=== PATIENT | female | born 1975 | race Hispanic/Latino ===

== ENCOUNTER 2018-07-01 04:40 | Inpatient (IN) | payer SELFPAY ==
[2018-07-01] MEDS ORDERED: NA CHLORIDE 0.9% 1,000 ML ONE (05:38)
[2018-07-01] MEDS ORDERED: ONDANSETRON 4 MG/2 ML VIAL ONE ×2 (05:38→12:48)
[2018-07-01 05:43] LABS: Urine Blood 2+ (NEG); Urine Glucose NEGATIVE (NEG); Urine Protein 2+ (NEG); Urine Specific Gravity 1.025 (1.005-1.030)
[2018-07-01 05:45] LABS: Absolute Lymphocytes (CBC) 0.8 K/uL (0.7-4.9); Absolute Monocytes 0.3 K/uL (0.1-1.3); Absolute Neutrophil 4.6 K/uL (1.8-8.0); Basophils % 0.8 % (0-1.3); Eosinophils % 1.3 % (0-4.4); Lymphocytes % 13.2 % (15.3-44.8); Monocytes % 5.9 % (3.3-12.3); RBC Red Blood Cell Count 2.93 M/uL (3.86-4.86)
[2018-07-01 05:51] LABS: Hematocrit 19.9 % (36.0-45.0)
[2018-07-01 05:53] LABS: ALT/SGPT 46 U/L (12-78); AST/SGOT 62 U/L (15-37); Albumin 4.1 g/dL (3.4-5.0); Alkaline Phosphatase 85 U/L (45-117); BUN Blood Urea Nitrogen 6 mg/dL (7-18); Bicarbonate 29 mmol/L (21-32); Bilirubin Direct 0.4 mg/dL (0-0.2); Bilirubin Total 1.5 mg/dL (0.2-1.0); Glucose Level 128 mg/dL (74-106); Lipase 52 U/L (73-393); Potassium 3.6 mmol/L (3.5-5.1); Protein, Total 7.8 g/dL (6.4-8.2); Sodium Level 138 mmol/L (136-145)
[2018-07-01] MEDS ORDERED: FAMOTIDINE 20 MG/2 ML VIAL IV ONE (06:21)
[2018-07-01] MEDS ORDERED: CEFTRIAXONE/SWI 1gm 1 GM/10 ML SYR ONE (06:21)
[2018-07-01] MEDS ORDERED: FENTANYL CITR 100 MCG/2 ML ONE ×3 (06:21→12:47)
--- NOTE | 2018-07-01 07:12 | ER ---
Nurse's Notes [facility] Name: Minoo Sykes Age: 42 yrs Sex: Female : 1975 Arrival Date: 07/01/2018 Time: 04:53 Bed 20 Private MD: Diagnosis: Abdominal tenderness;Abnormal uterine and vaginal bleeding, unspecified;Anemia, unspecified;Leiomyoma of uterus, unspecified;Leiomyoma of uterus;Cholelithiasis;Vomiting;Cystitis;Acute maxillary sinusitis;Acute appendicitis-DISTAL TIP Presentation: 07/01 05:10 Presenting complaint: states: cough and vomiting x 2 days with epigastric pain. tl2 also states that pt had blood work done 1 month ago and was told to come in to get a blood transfusion but pt has not been seen by PCP. Transition of care: patient was not received from another setting of care. Onset of symptoms was June 28, 2018. Risk Assessment: Do you want to hurt yourself or someone else? Patient reports no desire to harm self or others. Initial Sepsis Screen: Does the patient meet any 2 criteria? No. Patient's initial sepsis screen is negative. Does the patient have a suspected source of infection? No. Patient's initial sepsis screen is negative. Care prior to arrival: None. 05:10 Method Of Arrival: Ambulatory tl2 05:10 Acuity: BERTA 3 tl2 Triage Assessment: 05:14 General: Appears in no apparent distress. uncomfortable, Behavior is calm, cooperative, tl2 appropriate for age. Pain: Complains of pain in epigastric area Pain currently is 8 out of 10 on a pain scale. Neuro: Level of Consciousness is awake, alert, obeys commands, Oriented to person, place, time, situation. Cardiovascular: Denies chest pain. Respiratory: Airway is patent Respiratory effort is even, unlabored, Respiratory pattern is regular, symmetrical. GI: Reports intolerance of food, nausea, vomiting. : No signs and/or symptoms were reported regarding the genitourinary system. Derm: Skin is pale. 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 - Social history:: Smoking status: Patient/guardian denies using tobacco. - Ebola Screening: : No symptoms or risks identified at this time. Screenin:17 Abuse screen: Denies threats or abuse. Nutritional screening: No deficits noted. tl2 Tuberculosis screening: No symptoms or risk factors identified. Fall Risk None identified. Assessment: 05:14 General: see triage assessment. tl2 06:45 Reassessment: Patient appears in no apparent distress at this time. Patient and/or tl2 family updated on plan of care and expected duration. Pain level reassessed. Patient is alert, oriented x 3, equal unlabored respirations, skin warm/dry/pink. pt out to CT, awaiting transfusion order sheets. 07:10 Reassessment: Patient appears in no apparent distress at this time. Patient and/or em family updated on plan of care and expected duration. Pain level reassessed. Patient states feeling better. General: Appears in no apparent distress. comfortable, Behavior is calm, cooperative. Pain: Complains of pain in abdomen. Neuro: Level of Consciousness is awake, alert, obeys commands, Oriented to person, place, time, situation, Denies dizziness. Cardiovascular: Denies chest pain. Respiratory: Airway is patent Respiratory effort is even, unlabored, Respiratory pattern is regular, symmetrical. GI: Abdomen is flat, Bowel sounds present X 4 quads. Abd is soft X 4 quads Abdomen is tender to palpation X 4 quads. Reports nausea, vomiting. Derm: Skin is intact, is healthy with good turgor, Skin is dry, Skin is pale. Musculoskeletal: Range of motion: intact in all extremities. 08:31 Reassessment: Patient appears in no apparent distress at this time. Patient and/or em family updated on plan of care and expected duration. Pain level reassessed. Patient is alert, oriented x 3, equal unlabored respirations, skin warm/dry/pink. rates pain 8/10, provider notified. 08:35 Reassessment: new mediation orders received. em 08:45 Reassessment: Patient appears in no apparent distress at this time. Patient and/or em family updated on plan of care and expected duration. Pain level reassessed. Dr. Fraga at bedside. 08:52 Reassessment: finished drinking PO contrast, tolerated well, CT notified. em 09:52 Reassessment: Patient appears in no apparent distress at this time. Patient and/or em family updated on plan of care and expected duration. Pain level reassessed. Patient is alert, oriented x 3, equal unlabored respirations, skin warm/dry/pink. 11:05 Reassessment: Patient appears in no apparent distress at this time. Patient and/or em family updated on plan of care and expected duration. Pain level reassessed. Patient is alert, oriented x 3, equal unlabored respirations, skin warm/dry/pink. reports pain 9/10, provider notified, new medication orders received. 12:14 Reassessment: Patient appears in no apparent distress at this time. Patient and/or em family updated on plan of care and expected duration. Pain level reassessed. Patient is alert, oriented x 3, equal unlabored respirations, skin warm/dry/pink. reports pain 9/10, provider notified, new medication orders received. Vital Signs: 05:14 BP 125 / 66; Pulse 93; Resp 18; Temp 98.8(O); Pulse Ox 99% on R/A; Weight 81.65 kg; tl2 Height 4 ft. 11 in. (149.86 cm); Pain 8/10; 05:43 BP 124 / 71; Pulse 65; Resp 17; Pulse Ox 97% on R/A; tl1 07:13 BP 118 / 66; Pulse 86; Resp 16; Pulse Ox 99% on R/A; Pain 2/10; em 08:30 BP 120 / 61; Pulse 83; Resp 16; Pulse Ox 99% on R/A; Pain 8/10; em 09:30 BP 120 / 55; Pulse 86; Resp 18; Pulse Ox 99% on R/A; em 10:35 BP 130 / 64; Pulse 91; Resp 18; Pulse Ox 99% on R/A; Pain 8/10; em 11:30 BP 129 / 63; Pulse 82; Resp 18; Pulse Ox 98% on R/A; Pain 9/10; em 05:14 Body Mass Index 36.36 (81.65 kg, 149.86 cm) tl2 ED Course: 04:53 Patient arrived in ED. es 04:58 Kd Galarza MD is Attending Physician. mimi 05:13 Triage completed. tl2 05:14 Arm band placed on right wrist. EKG completed in triage. Results shown to . tl2 05:17 Patient has correct armband on for positive identification. Placed in gown. Bed in low tl2 position. Call light in reach. Side rails up X 1. 05:49 Notified ED physician of a critical lab result(s). hemoglobin of 6.3, hct of 19.9. fc 06:02 CT Head Brain wo Cont In Process Unspecified. EDMS 06:03 CT completed. Patient tolerated procedure well. Patient moved to CT via stretcher. Patient moved back from CT. 06:[address] via stretcher. eh 06:43 CT Abd/Pelvis - W/Contrast In Process Unspecified. EDMS 07:00 Inserted saline lock: 20 gauge in right. em 07:07 Karen Gardiner MD is Hospitalizing Provider. [facility] 07:13 Mic Padilla LVN is Primary Nurse. em 07:13 Ultrasound completed. Patient tolerated well. Patient moved back from ultrasound. aa4 07:14 US Abdomen Limited In Process Unspecified. EDMS 07:14 US Transvaginal Study (Probe) In Process Unspecified. EDMS 08:30 Inserted saline lock: 20 gauge in left antecubital area, using aseptic technique. em 12:23 No provider procedures requiring assistance completed. Patient admitted, IV remains in em place. Administered Medications: 05:31 Drug: NS 0.9% 1000 ml Route: IV; Rate: 1 bolus; Site: right antecubital; tl1 07:18 Follow up: IV Status: Completed infusion; IV Intake: 1000ml em 05:32 Drug: Zofran 4 mg Route: IVP; Infused Over: 2 mins; Site: right antecubital; tl1 07:18 Follow up: Response: No adverse reaction; Nausea is decreased em 06:17 CANCELLED (Duplicate Order): NS 0.9% 1000 ml IV at 1 bolus Per protocol; 1000 mL bolus tl2 06:17 Drug: Pepcid 20 mg Route: IVP; Site: right antecubital; tl2 06:52 Follow up: Response: No adverse reaction; No change in condition tl1 06:18 Drug: fentaNYL (PF) 25 mcg Route: IVP; Site: right antecubital; tl2 06:52 Follow up: Response: No adverse reaction; Pain is decreased tl1 06:18 Drug: Rocephin - (cefTRIAXone) 1 grams Route: IVPB; Infused Over: 30 mins; Site: right tl2 antecubital; 06:52 Follow up: IV Status: Completed infusion tl1 08:20 Drug: Zosyn 3.375 grams Route: IVPB; Infused Over: 60 mins; Site: right antecubital; em 09:25 Follow up: Response: No adverse reaction; IV Status: Completed infusion; IV Intake: em 100ml 08:35 Drug: fentaNYL (PF) 25 mcg Route: IVP; Site: left antecubital; em 08:50 Follow up: Response: No adverse reaction; Pain is decreased em 11:10 Drug: fentaNYL (PF) 25 mcg Route: IVP; Site: right antecubital; em 12:10 Follow up: Response: No adverse reaction em 12:15 Drug: Dilaudid 0.5 mg Route: IVP; Site: right antecubital; la1 12:18 Follow up: Response: Medication administered at discharge. em Medication: 09:05 Blood products: PRBCs X 1 unit given. la1 12:22 Blood products: PRBCs X 1 unit given. la1 Intake: 07:18 IV: 1000ml; Total: 1000ml. em 09:25 IV: 100ml; Total: 1100ml. em Outcome: 07:11 Decision to Hospitalize by Provider. mimi 12:23 Admitted to OR accompanied by nurse, via wheelchair, with chart, Report called to em Hortencia Goyal RN 12:23 Condition: good 12:23 Instructed on the need for admit, Demonstrated understanding of instructions. 12:37 Patient left the ED. em Signatures: Dispatcher [employer] EDKd Waldron MD MD cha Salyer, Edna es Hagler, Ervin eh Chretien, Felicia RN Mic Freed, SPECTROGRAPHIC ANALYST SPECTROGRAPHIC ANALYST em Madalyn Russell aa4 Romeo Lewis RN RN la1 Elena Garcia RN RN tl1 Coty Oseguera RN RN tl2 Corrections: (The following items were deleted from the chart) 08:46 08:30 BP 120 / 61; Pulse 16bpm; Resp 99bpm; Pulse Ox 99% RA; Pain 8/10; em em 12:10 12:09 fentaNYL (PF) 25 mcg IVP in right antecubital em em 13:12 07:10 Pain: Complains of pain in abdomen em em 07/02 07:50 07/01 11:30 BP 129 / 63; Pulse 82bpm; Resp 18bpm; Pulse Ox 98% RA; Pain 04/06; em em 07/02 07:51 07/01 12:23 Admitted to OR accompanied by nurse, via wheelchair, on monitor, with em chart, Report called to Hortencia Goyal RN em
--- NOTE | 2018-07-01 07:12 | EDPHYS ---
Physician Documentation [facility] Name: Minoo Sykes Age: 42 yrs Sex: Female : 1975 Arrival Date: 07/01/2018 Time: 04:53 Bed 20 Private MD: ED Physician Kd Galarza HPI: 07/01 06:09 This 42 yrs old Female presents to ER via Ambulatory with complaints of mimi Vomiting, Abdominal Pain, Headache. 06:09 The patient presents to the emergency department with nausea, vomiting, abdominal pain, mimi of the right upper quadrant, left upper quadrant, right lower quadrant and left lower quadrant. Onset: The symptoms/episode began/occurred last night. Possible causes: unknown. The symptoms are aggravated by nothing. The symptoms are alleviated by nothing. Associated signs and symptoms: Pertinent positives: abdominal pain, nausea, vomiting. Severity of symptoms: At their worst the symptoms were moderate in the emergency department the symptoms are unchanged. The patient has not experienced similar symptoms in the past. 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 - Social history:: Smoking status: Patient/guardian denies using tobacco. - Ebola Screening: : No symptoms or risks identified at this time. ROS: 06:10 Constitutional: Negative for fever, chills, and weight loss, ENT: Negative for injury, mimi pain, and discharge, Neck: Negative for injury, pain, and swelling, Cardiovascular: Negative for chest pain, palpitations, and edema, Respiratory: Negative for shortness of breath, cough, wheezing, and pleuritic chest pain, Back: Negative for injury and pain, : Negative for injury, bleeding, discharge, and swelling, MS/Extremity: Negative for injury and deformity, Neuro: Negative for headache, weakness, numbness, tingling, and seizure, Psych: Negative for depression, anxiety, suicide ideation, homicidal ideation, and hallucinations, Allergy/Immunology: Negative for hives, rash, and allergies, Endocrine: Negative for neck swelling, polydipsia, polyuria, polyphagia, and marked weight changes, Hematologic/Lymphatic: Negative for swollen nodes, abnormal bleeding, and unusual bruising. 06:10 Abdomen/GI: Positive for abdominal pain, nausea and vomiting, abdominal cramps, of the right upper quadrant, left upper quadrant, right lower quadrant and left lower quadrant. 06:10 Skin: Positive for pallor. Exam: 06:10 Constitutional: This is a well developed, well nourished patient who is awake, alert, mimi and in no acute distress. Head/Face: Normocephalic, atraumatic. Eyes: Pupils equal round and reactive to light, extra-ocular motions intact. Lids and lashes normal. Conjunctiva and sclera are non-icteric and not injected. Cornea within normal limits. Periorbital areas with no swelling, redness, or edema. ENT: Nares patent. No nasal discharge, no septal abnormalities noted. Tympanic membranes are normal and external auditory canals are clear. Oropharynx with no redness, swelling, or masses, exudates, or evidence of obstruction, uvula midline. Mucous membranes moist. Neck: Trachea midline, no thyromegaly or masses palpated, and no cervical lymphadenopathy. Supple, full range of motion without nuchal rigidity, or vertebral point tenderness. No Meningismus. Chest/axilla: Normal chest wall appearance and motion. Nontender with no deformity. No lesions are appreciated. Cardiovascular: Regular rate and rhythm with a normal S1 and S2. No gallops, murmurs, or rubs. Normal PMI, no JVD. No pulse deficits. Respiratory: Lungs have equal breath sounds bilaterally, clear to auscultation and percussion. No rales, rhonchi or wheezes noted. No increased work of breathing, no retractions or nasal flaring. Back: No spinal tenderness. No costovertebral tenderness. Full range of motion. Skin: Warm, dry with normal turgor. Normal color with no rashes, no lesions, and no evidence of cellulitis. MS/ Extremity: Pulses equal, no cyanosis. Neurovascular intact. Full, normal range of motion. Neuro: Awake and alert, GCS 15, oriented to person, place, time, and situation. Cranial nerves II-XII grossly intact. Motor strength 5/5 in all extremities. Sensory grossly intact. Cerebellar exam normal. Normal gait. Psych: Awake, alert, with orientation to person, place and time. Behavior, mood, and affect are within normal limits. 06:10 Abdomen/GI: Inspection: distension, Bowel sounds: normal, Palpation: mild abdominal tenderness, in the right upper quadrant, left upper quadrant, right lower quadrant and left lower quadrant, Liver: no appreciated palpable abnormalities, Hernia: not appreciated. Vital Signs: 05:14 BP 125 / 66; Pulse 93; Resp 18; Temp 98.8(O); Pulse Ox 99% on R/A; Weight 81.65 kg; tl2 Height 4 ft. 11 in. (149.86 cm); Pain 8/10; 05:43 BP 124 / 71; Pulse 65; Resp 17; Pulse Ox 97% on R/A; tl1 07:13 BP 118 / 66; Pulse 86; Resp 16; Pulse Ox 99% on R/A; Pain 2/10; em 08:30 BP 120 / 61; Pulse 83; Resp 16; Pulse Ox 99% on R/A; Pain 8/10; em 09:30 BP 120 / 55; Pulse 86; Resp 18; Pulse Ox 99% on R/A; em 10:35 BP 130 / 64; Pulse 91; Resp 18; Pulse Ox 99% on R/A; Pain 8/10; em 11:30 BP 129 / 63; Pulse 82; Resp 18; Pulse Ox 98% on R/A; Pain 9/10; em 05:14 Body Mass Index 36.36 (81.65 kg, 149.86 cm) tl2 MDM: 04:59 Patient medically screened. [facility] 06:12 Data reviewed: vital signs, nurses notes, lab test result(s), radiologic studies, CT mimi scan, ultrasound. 07/01 05:00 Order name: Basic Metabolic Panel [facility] 07/01 05:00 Order name: CBC with Diff [facility] 07/01 05:00 Order name: Creatinine for Radiology [facility] 07/01 05:00 Order name: Hepatic Function [facility] 07/01 05:00 Order name: Lipase [facility] 07/01 05:00 Order name: Urine Culture [facility] 07/01 05:01 Order name: Basic Metabolic Panel; Complete Time: 06:08 [facility] 07/01 05:01 Order name: CBC with Automated Diff; Complete Time: 11:05 [facility] 07/01 05:01 Order name: Creatinine (Radiology Only); Complete Time: 06:08 [facility] 07/01 05:01 Order name: Liver (Hepatic) Function; Complete Time: 06:08 [facility] 07/01 05:01 Order name: Lipase; Complete Time: 06:08 [facility] 07/01 05:01 Order name: Urine Culture [facility] 07/01 05:13 Order name: Type And Screen tl2 07/01 05:36 Order name: Urine Dipstick--Ancillary (enter results) 07/01 05:00 Order name: CT Head Brain wo Cont; Complete Time: 09:08 [facility] 07/01 05:36 Order name: Urine --Ancillary (enter results) 07/01 05:55 Order name: CBC Smear Scan; Complete Time: 11:05 [facility] 07/01 06:07 Order name: US Abdomen Limited; Complete Time: 11:05 [facility] 07/01 06:07 Order name: US Transvaginal Study (Probe); Complete Time: 11:05 [facility] 07/01 06:07 Order name: CT Abd/Pelvis - W/Contrast; Complete Time: 11:05 [facility] 07/01 06:57 Order name: ABO/RH no charge; Complete Time: 06:59 [facility] 07/01 07:05 Order name: LAB Add On ag 07/01 07:41 Order name: ABO rpt [facility] 07/01 07:41 Order name: Packed RBCs (Additional Unit) [facility] 07/01 05:00 Order name: IV Saline Lock; Complete Time: 05:13 [facility] 07/01 05:00 Order name: Labs collected and sent; Complete Time: 05:13 [facility] 07/01 05:00 Order name: Urine Dipstick-Ancillary (obtain specimen); Complete Time: 05:32 [facility] 07/01 05:00 Order name: Urine Test (obtain specimen); Complete Time: 05:32 [facility] 07/01 06:07 Order name: Transfuse; Complete Time: 09:09 [facility] 07/01 11:32 Order name: CONS Physician Consult [facility] Administered Medications: 05:31 Drug: NS 0.9% 1000 ml Route: IV; Rate: 1 bolus; Site: right antecubital; tl1 07:18 Follow up: IV Status: Completed infusion; IV Intake: 1000ml em 05:32 Drug: Zofran 4 mg Route: IVP; Infused Over: 2 mins; Site: right antecubital; tl1 07:18 Follow up: Response: No adverse reaction; Nausea is decreased em 06:17 CANCELLED (Duplicate Order): NS 0.9% 1000 ml IV at 1 bolus Per protocol; 1000 mL bolus tl2 06:17 Drug: Pepcid 20 mg Route: IVP; Site: right antecubital; tl2 06:52 Follow up: Response: No adverse reaction; No change in condition tl1 06:18 Drug: fentaNYL (PF) 25 mcg Route: IVP; Site: right antecubital; tl2 06:52 Follow up: Response: No adverse reaction; Pain is decreased tl1 06:18 Drug: Rocephin - (cefTRIAXone) 1 grams Route: IVPB; Infused Over: 30 mins; Site: right tl2 antecubital; 06:52 Follow up: IV Status: Completed infusion tl1 08:20 Drug: Zosyn 3.375 grams Route: IVPB; Infused Over: 60 mins; Site: right antecubital; em 09:25 Follow up: Response: No adverse reaction; IV Status: Completed infusion; IV Intake: em 100ml 08:35 Drug: fentaNYL (PF) 25 mcg Route: IVP; Site: left antecubital; em 08:50 Follow up: Response: No adverse reaction; Pain is decreased em 11:10 Drug: fentaNYL (PF) 25 mcg Route: IVP; Site: right antecubital; em 12:10 Follow up: Response: No adverse reaction em 12:15 Drug: Dilaudid 0.5 mg Route: IVP; Site: right antecubital; la1 12:18 Follow up: Response: Medication administered at discharge. em Disposition: 07/01/18 07:11 Hospitalization ordered by Karen Gardiner for Inpatient Admission. Preliminary diagnosis are Abdominal tenderness, Abnormal uterine and vaginal bleeding, unspecified, Anemia, unspecified, Leiomyoma of uterus, unspecified, Leiomyoma of uterus, Cholelithiasis, Vomiting, Cystitis, Acute maxillary sinusitis, Acute appendicitis - DISTAL TIP. - Bed requested for Telemetry/MedSurg (Inpatient). - Status is Inpatient Admission. em - Condition is Fair. - Problem is new. - Symptoms have improved. UTI on Admission? Yes Signatures: Dispatcher [employer] EDKd Waldron MD MD cha Munoz, Edgar, INSTITUTION LIBRARIAN INSTITUTION LIBRARIAN em Haim Shelby PA PA [id number] Romeo Lewis RN RN la1 Elena Garcia RN RN tl1 Coty Oseguera RN RN tl2 Corrections: (The following items were deleted from the chart) 06:17 06:07 NS 0.9% 1000 ml IV at 1 bolus Per protocol; 1000 mL bolus ordered. mimi tl2 07:57 07:11 Hospitalization Ordered by Karen Gadriner MD for Observation. Preliminary diagnosis mimi is Abdominal tenderness; Abnormal uterine and vaginal bleeding, unspecified; Anemia, unspecified; Leiomyoma of uterus, unspecified; Leiomyoma of uterus; Cholelithiasis; Vomiting. Bed requested for Telemetry/MedSurg (observation). Status is Observation. Condition is Fair. Problem is new. Symptoms have improved. UTI on Admission? No. mimi 08:07 07:57 07/01/2018 07:11 Hospitalization Ordered by Karen Gardiner MD for Observation. [facility] Preliminary diagnosis is Abdominal tenderness; Abnormal uterine and vaginal bleeding, unspecified; Anemia, unspecified; Leiomyoma of uterus, unspecified; Leiomyoma of uterus; Cholelithiasis; Vomiting; Cystitis; Acute maxillary sinusitis. Bed requested for Telemetry/MedSurg (observation). Status is Observation. Condition is Fair. Problem is new. Symptoms have improved. UTI on Admission? Yes. [facility] 10:24 08:16 Pelvis W/Cont+CT.RAD.BRZ ordered. EDAZ EDMS 12:37 08:07 07/01/2018 07:11 Hospitalization Ordered by Karen Gardiner MD for Inpatient em Admission. Preliminary diagnosis is Abdominal tenderness; Abnormal uterine and vaginal bleeding, unspecified; Anemia, unspecified; Leiomyoma of uterus, unspecified; Leiomyoma of uterus; Cholelithiasis; Vomiting; Cystitis; Acute maxillary sinusitis; Acute appendicitis - DISTAL TIP. Bed requested for Telemetry/MedSurg (Inpatient). Status is Inpatient Admission. Condition is Fair. Problem is new. Symptoms have improved. UTI on Admission? Yes. mimi
[2018-07-01] MEDS ORDERED: NA CHLORIDE 0.9% 100 ML IV ONE ×2 (07:18→11:05)
[2018-07-01] MEDS ORDERED: PIPER/TAZO/NS 3.375gm 3.375 GM/100 ML BAG ONE (08:25)
--- NOTE | 2018-07-01 08:40 | RAD REPORT ---
EXAM DESCRIPTION: CT - Head Brain Wo Cont - 07/01/2018 6:02 am CLINICAL HISTORY: Headache COMPARISON: None. TECHNIQUE: Computed axial tomography of the head was obtained. IV contrast was not requested.Prelimi nary report generated by virtual radiologic and review prior to dictation All CT scans are performed using dose optimization technique as appropriate and may include automated exposure control or mA/KV adjustment according to patient size. FINDINGS: An intracranial bleed is not seen . The ventricles are normal in caliber. No extra-axial fluid collection is noted. Fluid within the sinuses/ mastoids is not seen. Mild to moderate mucoperiosteal thickening left maxil francesco sinus IMPRESSION: No acute intracranial abnormality is seen. If patient's symptoms persist MRI of the bra in would be recommended. Chronic left maxillary sinusitis
[2018-07-01 09:11] LABS: Blood Morphology Comment NOT SEEN (NOT SEEN); Platelet Estimate ADEQ; Urine White Blood Cell Casts OK
--- NOTE | 2018-07-01 09:40 | RAD REPORT ---
EXAM DESCRIPTION: US - Abdomen Exam Limited - 07/01/2018 7:14 am CLINICAL HISTORY: Abdominal pain. COMPARISON: None. FINDINGS: 3.1 centimeter gallstone. Gallbladder wall is not thickened. The biliary tree is normal caliber. IMPRESSION: Cholelithiasis without evidence of cholecystitis
--- NOTE | 2018-07-01 10:41 | RAD REPORT ---
EXAM DESCRIPTION: CT - Abdomen Pelvis W Contrast - 07/01/2018 10:25 am CLINICAL HISTORY: Abdominal pain nausea and vomiting COMPARISON: none. TECHNIQUE: Computed axial tomography of the abdomen pelvis was obtained. 100 cc Isovue-300 was admin istered intravenously. Oral contrast was given All CT scans are performed using dose optimization technique as appropriate and may include automated exposure control or mA/KV adjustment according to patient size. FINDINGS: A fatty liver Spleen, pancreas, adrenal and kidneys appear unremarkable. There is no evidence of diverticulitis. The distal appendix is thickened with stranding within the adjacent fat. The appendix extends mediall y and inferiorly to the cecum. A small appendicolith is seen. The distal appendix abuts the right ova ry 5 centimeter low-density present within the region of the endometrium IMPRESSION: Distal appendicitis. A 5 centimeter low-density area within the region the endometrium may represent blood, endometrial ma ss or submucosal fibroid
--- NOTE | 2018-07-01 10:45 | RAD REPORT ---
EXAM DESCRIPTION: US - Transvaginal Study Probe - 07/01/2018 7:14 am CLINICAL HISTORY: Abdominal pain FINDINGS: The uterus measures 7 x 3 x 3cm. A 5 centimeter echogenic structure is either present with in the endometrium or abuts it. The left ovary is normal in size and echotexture. Right ovary is not seen. . No significant free fluid is seen. IMPRESSION: 5 centimeter echogenic structure either lies within the endometrium or adjacent to it. I t may represent blood, an endometrial mass or submucosal fibroid
[2018-07-01] MEDS ORDERED: ONDANSETRON 4 MG/2 ML VIAL IV PRN (11:31)
[2018-07-01] MEDS ORDERED: MORPHINE 4 MG/ML SYR IV PRN (11:34)
[2018-07-01] MEDS ORDERED: HYDROMORPHONE HCL 0.5 MG/0.5 ML INJ ONE (12:23)
[2018-07-01] MEDS: BUPIVACA 0.25%/EPI 0.0005% MDV 50 ML VIAL ONE ×2 (12:45→13:13)
[2018-07-01] MEDS ORDERED: PROPOFOL 200 MG/20 ML VIAL IV ONE (12:46)
[2018-07-01] MEDS ORDERED: MIDAZOLAM HCL 2 MG/2 ML INJ ONE (12:48)
[2018-07-01] MEDS ORDERED: LIDOCAINE 2% MPF 5 ML VIAL ONE (12:48)
[2018-07-01] MEDS ORDERED: ROCURONIUM 50 MG/5 ML VIAL IV ONE (12:49)
[2018-07-01] MEDS ORDERED: Ringers Lactate 1,000 ML IV ONE ×2 (12:49→14:30)
[2018-07-01] MEDS: VANCOMYCIN 1.5 GM in NA CHLORIDE 0.9% 500 ML IVPB SCH (12:53)
--- NOTE | 2018-07-01 12:57 | CON ---
Date of Consultation: 07/01/2018 Brief History Of Present Illness: The patient is a 42-year-old female, who presents to the ER via Ambulatory with complaints of abdominal pain beginning in the lower abdomen in the periumbilic al region, but associated with headache as well. She has not had similar episodes before in the past . She has a history of menstrual complaints, having several menstrual periods per month with heavy b leeding. As she has no insurance, she has not been followed up with any physician, and has not had a ny workup of any kind regarding this. She stated that the pain felt much like menstrual pain, only m uch more severe in the lower abdomen, and as such, she came to the emergency room with the above-stat ed complaints. She was found to be profoundly anemic with a hemoglobin in the 6.9 range, and she had headaches as well. The pain was worse with pressure in her abdomen and palpation. Otherwise, she h ad no nausea, no vomiting. No change in bowel or bladder habits. No constipation, diarrhea. She daley s not had similar episodes before in the past regarding this specifically. Her last menstrual period was 06/13/2018. She feels that she is due for it in the next few days. Past Medical History: None. Past Surgical History: She has had 2 C-sections. Allergies: NO KNOWN DRUG ALLERGIES. Home Medications: None. Social History: She denies smoking, alcohol, or recreational drug use. Review of Systems: A 10-point review of systems other than HPI, denies. Physical Examination: Vital Signs: At the time of examination her blood pressure was 125/60, pulse 93, respiratory rate 18 , temperature 98.8. General: She is awake, alert, and oriented. Psychiatric: She is appropriate and conversive. HEENT: She is normocephalic. Sclerae anicteric. Mucous membranes are moist. Oropharynx clear. Neck: Supple. No JVD. Chest: Normal expansion and excursion. Cardiovascular: Regular rate and rhythm. Pulmonary: Clear to auscultation bilaterally. Abdomen: Soft with positive suprapubic and right lower quadrant abdominal pain. It has mild tendern ess to moderate to deep palpation. No rebound. No guarding. There was mild focal peritonitis in th e right lower quadrant. Extremities: No clubbing, cyanosis, or edema. Skin: Warm and dry. Laboratory Data: Reveals a white blood count of 5.8, hemoglobin 6.3, hematocrit of 19.9, platelet co unt is 173. Her neutrophils are 78.8%. Her sodium 138, potassium 3.6, chloride 101, carbon dioxide 29, BUN 6, creatinine 0.5, glucose is 128, total bilirubin 1.5, direct component 0.4, AST 62, ALT 46, alkaline phosphatase of 85, lipase was 52. UA was 1+ ketones, 2+ blood, positive nitrites, trace le ukocyte esterase, 2+ protein and negative test. She had imaging performed which included a head CT officially read as no acute intracranial abnormality seen. If the patient symptoms persist, MRI of the brain will be recommended. Chronic left maxillary sinusitis. She had a CT of the abdome n and pelvis as well, which was officially read as distal appendicitis 5 cm low-density area within t he region the endometrium, it may represent blood, endometrial mass, or submucosal fibroid. Distal a ppendix is thickened with stranding within the adjacent fat. The appendix extends medially and infer iorly to the cecum. A small appendicolith is seen. Distal appendix abuts the right ovary. She had an abdominal ultrasound, officially read as well, which showed cholelithiasis without cholecystitis, 3.1 cm gallstone evident. The gallbladder wall is not thickened. Transvaginal ultrasound was also p erformed, which confirmed a 5 cm echogenic structure, which lies within the endometrium or adjacent t o it. It may represent blood, endometrial mass or submucosal fibroid. Assessment And Plan: This is a 42-year-old female, who comes in with abdominal pain and an imaging c onfirming appendicitis. 1.IV fluid hydration. 2.Antibiotic coverage. 3.I have explained risks, benefits, and alternatives of laparoscopic, possible open appendectomy inc luding but not limited to bleeding, infection, damage to the surrounding tissue, need for further ope ration or procedures. The patient agreed to proceed as indicated. Thank you for this interesting consult. JULIANE/DORYS Voice ID: [id number] Report ID: [id number]
--- NOTE | 2018-07-01 14:00 | P.OP ---
Radio Station Manager: Liliam Villanueva Preoperative diagnosis: Acute Appendicitis Postoperative diagnosis: Acute Appendicitis Primary procedure: Laparoscopic Appendectomy Secondary procedure: Pelvic Washout Anesthesia: GETA + Local Estimated blood loss: <5cc Specimen: Vermiform Appendix Findings: Non-perforated Appendicitis Operative Technique: uterine mass consistent with fibroid Transferred to: ICU Condition: Fair
[2018-07-01] MEDS ORDERED: NEOSTIGMINE 1 MG/ML -5 ML SYRINGE ONE (14:04)
[2018-07-01] MEDS ORDERED: GLYCOPYRROLATE 0.2 MG/ML SYR ONE (14:04)
--- NOTE | 2018-07-01 15:27 | P.HP ---
Certification for Inpatient Patient admitted to: Inpatient With expected LOS: >2 Midnights Patient will require the following post-hospital care: None Practitioner: I am a practitioner with admitting privileges, knowledge of patient current condition, hospital course, and medical plan of care. Services: Services provided to patient in accordance with Admission requirements found in Title 42 Section 412.3 of the Code of Federal Regulations Patient History Date of Service: 07/01/18 Primary Care Provider: None Reason for admission: N/V and Dizziness History of Present Illness: A 42-year-old female, with medical history presented to the ED complaining of having some generalized abdominal pain. Patient also complained of nausea vomiting and coughing x2 days. Has been getting progressively worse and thus decided to come to the ER. Patient's at bedside states that patient was asked to go see a primary care doctor after having her blood work done a month ago and stated she needed blood transfusion at that time however was not able to get it done due to no insurance. Patient states that the abdominal pain began in the lower abdomen in the periumbilical region and was radiating to the right upper quadrant. Patient also had associated nausea vomiting and headache with it. She stated that the pain felt much like menstrual pain, only much more severe in the lower abdomen. She has not had similar episodes before in the past. She has a history of menstrual complaints , having several menstrual periods per month with heavy bleeding. As she has no insurance, she has not been followed up with any physician, and has not had any workup of any kind regarding this. In the ER patient was found to have a hemoglobin of [address] that was consistent with appendicitis this patient was admitted to the hospital for further treatment. Allergies No Known Allergies Allergy (Unverified 07/01/18 11:42) Home medications list reviewed: Yes - Past Medical/Surgical History Has patient received pneumonia vaccine in the past: No Diabetic: No Past Medical History: Patient denies medical history Past Surgical History: Reviewed- Non-Contributory - Family History Family History: Reviewed- Non-Contributory - Social History Smoking Status: Unknown if ever smoked Counseled patient to stop smoking for: less than 10 minutes Smoking therapy provided: Yes Patient receptive to therapy: Yes Alcohol use: No CD- Drugs: No Caffeine use: No Place of Residence: Home Review of Systems 10-point ROS is otherwise unremarkable Physical Examination - Vital Signs Temperature: 98.3 F Blood Pressure: 129/58 Pulse: 80 Respirations: 16 - Physical Exam General: Alert, Oriented x3, Mild distress HEENT: Atraumatic, PERRLA, Mucous membr. moist/pink, EOMI, Sclerae nonicteric Neck: Supple, 2+ carotid pulse no bruit, No LAD, Without JVD or thyroid abnormality Respiratory: Clear to auscultation bilaterally, Normal air movement Cardiovascular: Regular rate/rhythm, Normal S1 S2 Gastrointestinal: Normal bowel sounds, Tenderness (Generalized tenderness right lower and upper quadrant tenderness more than other places), Guarding Musculoskeletal: No tenderness Integumentary: No rashes Neurological: Normal speech, Normal tone Lymphatics: No axilla or inguinal lymphadenopathy - Studies Laboratory Data (last 24 hrs) 07/01/18 05:10: Creatinine 0.52 L 07/01/18 05:10: WBC 5.8, Hgb 6.3 L*, Hct 19.9 L*, Plt Count 173 07/01/18 05:10: Sodium 138, Potassium 3.6, BUN 6 L, Creatinine 0.54 L, Glucose 128 H, Total Bilirubin 1.5 H, AST 62 H, ALT 46, Alkaline Phosphatase 85, Lipase 52 L Assessment and Plan - Problems (Diagnosis) (1) Acute appendicitis Current Visit: Yes Status: Acute Plan: Acute appendicitis noted on the abdominal CT. -general surgery consulted. Recommendations appreciated at this time. -patient planned for surgery immediately will be transferred from the ER to the OR at this time -IV antibiotics at this time -IV fluids as well. Qualifiers: Acute appendicitis type: unspecified acute appendicitis type Qualified Code (s): K35.80 - Unspecified acute appendicitis (2) Symptomatic anemia Current Visit: Yes Status: Acute Plan: Symptomatic anemia most likely secondary to acute blood loss secondary to heavy menstruation and uterine fibroids. -will transfuse 2 units of red blood cells before surgery -monitor H&H closely -currently patient not having any vaginal bleed (3) UTI (urinary tract infection) Current Visit: Yes Status: Acute Plan: UA with UTI -urine culture is pending at this time -currently on IV antibiotics will go ahead and continue that here in the hospital as well. Qualifiers: Urinary tract infection type: acute cystitis Hematuria presence: without hematuria Qualified Code(s): N30.00 - Acute cystitis without hematuria (4) Abnormal ultrasound Current Visit: Yes Status: Acute Plan: Abnormal transvaginal ultrasound -patient with uterine fibroid versus endometrial mass -will consult OBGYN -will most likely need outpatient workup done. -will follow up with recommendations from OBGYN Discharge Plan: Home Plan to discharge in: 48 Hours - Advance Directives Does patient have a Living Will: No Does patient have a Durable POA for Healthcare: No - Code Status/Comfort Care Code Status Assessed: Yes Critical Care: No
[2018-07-01] MEDS ORDERED: PIPER/TAZO/NS 3.375gm 3.375 GM/100 ML BAG IVPB SCH (16:00)
[2018-07-01 16:35] LABS: BUN Blood Urea Nitrogen 4 mg/dL (7-18); Bicarbonate 29 mmol/L (21-32); Glucose Level 125 mg/dL (74-106); Phosphorus 1.6 mg/dL (2.5-4.9); Potassium 3.9 mmol/L (3.5-5.1); Sodium Level 140 mmol/L (136-145)
[2018-07-01] MEDS: NA CHLORIDE 0.9% 1,000 ML IV SCH ×2 (16:49→22:00)
[2018-07-01] MEDS: METRONIDAZOLE 500mg IVPB 500 MG/100 ML BAG IV SCH (16:49)
[2018-07-01] MEDS ORDERED: POTASSIUM 25 MEQ EFFERV TAB PO ONE (17:55)
[2018-07-01] MEDS ORDERED: INFLUENZA VACCINE (for 3y+) 0.5 ML DOSE IMVAC ONE (18:00)
[2018-07-01] MEDS: HYDROCODONE/APAP 5/325 MG TAB PO PRN ×2 (18:26→23:10)
[2018-07-01] MEDS: CIPROFLOXACIN 400mg IV 400 MG/200 ML BAG IV SCH (21:50)
--- NOTE | 2018-07-02 01:10 | OP ---
Date of Procedure: 07/01/2018 Surgeon: Kevin Fraga MD, Archery Instructor: Liliam Villanueva. Preoperative Diagnosis: Acute appendicitis. Postoperative Diagnosis: Acute appendicitis. Procedure: Laparoscopic appendectomy. Secondary Procedure: Pelvic washout. Anesthesia: General endotracheal plus local with 0.25% Marcaine. Estimated Blood Loss: Less than 5 cc. Specimen: Vermiform appendix. Findings: Nonperforated appendicitis and uterine mass consistent with fibroid. Disposition: Transferred to ICU in good condition. Procedure In Detail: After informed consent was obtained, the patient brought to the operating room, prepped and draped in the usual sterile fashion. After adequate anesthesia was achieved, an infraum bilical area was anesthetized with 0.25% Marcaine, sharply incised and a 5-mm trocar was introduced i nto the abdomen without evidence of complication. Insufflation was obtained to 15 mmHg at this time. The abdomen was inspected this time. There was no injury to vital structures. There was significa nt scarring to the anterior abdominal wall from the omentum in the area where she had previously had a . Initially, she had an infraumbilical small hernia, which had omental contents. This wa s easily reduced at the time using the LigaSure device. The attention was then turned to placing add itional trocar to left lower quadrant, similarly anesthetized, sharply incised. A 5-mm trocar was in troduced into the abdomen without any evidence of complication. The umbilical trocar was then up-siz ed to a 12-mm under direct visualization without evidence of any complication. The takedown of the u mbilical hernia and the omental attachments to the anterior abdominal wall as described previously we re performed at this time using the LigaSure device. An additional trocar was then placed in the rig ht lower quadrant at this time, similarly anesthetized, sharply incised. A 5-mm trocar was introduce d into the abdomen without any evidence of complication. The patient was then positioned head down, right side up position. Graspers were used to grasp the appendix which was found to be in a retrocec al position. It was grossly inflamed with some suppurative changes, but no obvious perforation. It was grasped, elevated and a mesoappendiceal window was created with the [place] tractor. Endo LAMBERTO 3 5 blue load was fired across the base of the appendix with good approximation of tissues. The LigaSu re device was then used to take the mesoappendix down without evidence of complication. The appendix was then removed. The umbilical trocar re-insufflation was obtained at this time and the area was i nspected with proper hemostasis, which was achieved at this time. [place] found to be in good anatom ic position without any leakage. The pelvis was then grossly washed out and had a murky reddish flui d, which was completely washed out. The patient was then positioned in multiple positions while wash ing the abdomen out in its entirety. Her fallopian tubes were found to be somewhat red, particularly on the right side. There were no other masses found at the adnexa. However, the uterus did have a small approximately 1 to 2 cm round ovoid mass consistent with fibroid on the dome of the uterus whic h was inspected at this time. The pelvis was completely washed out. The patient was positioned in n eutral position. All irrigants were then suctioned out completely and the umbilical trocar was remov ed. The umbilical trocar site was closed using a Anuj-Dandre suture passer with 0 Vicryl in inte rrupted fashion with good approximation of tissues. The abdomen was completely desufflated under dir ect visualization without evidence of complication. All trocars were then removed. All skin incisio ns were copiously irrigated and closed with a 4-0 Monocryl in a running fashion. Dermabond placed ov er the top. The patient tolerated the procedure well without evidence of complications, transferred to the PACU in good condition. All counts were c orrect at the end of the case. JULIANE/DORYS Voice ID: [id number] Report ID: [id number]
[2018-07-02] MEDS: METRONIDAZOLE 500mg IVPB 500 MG/100 ML BAG IV SCH ×3 (01:44→18:25)
[2018-07-02] MEDS: HYDROCODONE/APAP 5/325 MG TAB PO PRN ×4 (04:34→22:57)
[2018-07-02] MEDS: NA CHLORIDE 0.9% 1,000 ML IV SCH ×2 (04:35→18:00)
[2018-07-02 06:16] LABS: Absolute Lymphocytes (CBC) 0.8 K/uL (0.7-4.9); Absolute Monocytes 0.4 K/uL (0.1-1.3); Absolute Neutrophil 3.9 K/uL (1.8-8.0); Basophils % 0.7 % (0-1.3); Eosinophils % 1.4 % (0-4.4); Hematocrit 20.4 % (36.0-45.0); Lymphocytes % 15.9 % (15.3-44.8); MPV 9.1 fL (7.6-11.3); Monocytes % 7.9 % (3.3-12.3)
[2018-07-02 06:36] LABS: ALT/SGPT 30 U/L (12-78); AST/SGOT 26 U/L (15-37); Alkaline Phosphatase 61 U/L (45-117); BUN Blood Urea Nitrogen 5 mg/dL (7-18); Bicarbonate 28 mmol/L (21-32); Bilirubin Total 1.6 mg/dL (0.2-1.0); Glucose Level 102 mg/dL (74-106); Potassium 3.4 mmol/L (3.5-5.1); Protein, Total 6.1 g/dL (6.4-8.2); Sodium Level 141 mmol/L (136-145)
[2018-07-02] MEDS ORDERED: POTASSIUM 25 MEQ EFFERV TAB PO ONE ×2 (09:00→16:36)
--- NOTE | 2018-07-02 09:00 | P.CNS ---
Date of Consult: 07/02/18 Pt is a 42 year old female, who has a long history of abnormal , heavy menses, no with severe anemia. She has not seen a doctor in a number of years, and her last pap smear was likely with her youngest child, now aged 12. PMHx-Two pregnancies, second delivered by because of bleeding issues. She has no other surgery or hospitilizations previously. She is on an oral iron supplement by ROS-as stated. It is unclear what she may be using for contraception. Exam-Normal female external genetalia, speculum exam is poor because of narrowness of available speculum, but obvious lesion not seen. Cx difficult to visualize, but appears distorted. Bimanual exam reveals very hard cx that is suspicious for neoplasm because of rock hard nature. Uterus about 6 week size. Endometrial biopsy performed but speciman thought to likely represent mostly blood. Plan- Depo Provera to try and decrease bleeding, until further evaluation can be performed. Will wait on biopsy and likely will exam in my office with better equipment, and do a pap smear there. If neoplasia suspected, will refer to inspector final assembly conveyor line-onc for evaluation and treatment. IF all looks benign, will try and get into [facility] clinic for further management. I do not do abdominal hysterectomies any longer and she would not be a good candidate for a vaginal hysterectomy secondary to the prior and the uterine mass. If she is dismissed post depo provera and transfusion she should call my office Wednesday to set up an appointment for a pap smear.
[2018-07-02] MEDS: CIPROFLOXACIN 400mg IV 400 MG/200 ML BAG IV SCH ×2 (09:30→22:15)
[2018-07-02] MEDS ORDERED: NA CHLORIDE 0.9% 250 ML ONE (11:33)
--- NOTE | 2018-07-02 12:43 | P.PN ---
Subjective Date of Service: 07/02/18 Primary Care Provider: None Chief Complaint: N/V and Dizziness Subjective: Improving (Patient feels well, but continues to have vaginal bleeding) Physical Examination - Vital Signs Temperature: 98.2 F Blood Pressure: 95/54 Pulse: 80 Respirations: 18 Pulse Ox (%): 100 - Physical Exam General: Alert, In no apparent distress, Cooperative Gastrointestinal: Soft and benign, Non-distended, No ascites, No masses, No rebound, No guarding, Other (minimal appropriate TTP, incisions clean and dry) Assessment And Plan - Current Problems (Diagnosis) (1) Acute appendicitis Current Visit: Yes Status: Acute Plan: ok to DC from surgical standpoint, however patient requires continued treatment for acute blood loss anemia related to vaginal bleeding, refer to Dr. Ro and Dr. Beckham regarding these issues Qualifiers: Acute appendicitis type: unspecified acute appendicitis type Qualified Code (s): K35.80 - Unspecified acute appendicitis
[2018-07-02] MEDS ORDERED: NA CHLORIDE 0.9% 100 ML ONE (15:24)
[2018-07-02] MEDS: POTASS/SODIUM PHOSPHATE 1 PKT POWD.PACK PO SCH ×3 (16:53→18:59)
--- NOTE | 2018-07-02 18:20 | P.PN ---
Subjective Date of Service: 07/02/18 Primary Care Provider: None Chief Complaint: N/V and Dizziness Subjective: Tolerating diet, Ambulating, Improving, Working w/ PT, Doing well Review of Systems 10-point ROS is otherwise unremarkable Physical Examination - Vital Signs Temperature: 98.0 F Blood Pressure: 105/72 Pulse: 70 Respirations: 18 Pulse Ox (%): 97 - Physical Exam General: Alert, In no apparent distress HEENT: Atraumatic, PERRLA, EOMI Neck: Supple, JVD not distended Respiratory: Clear to auscultation bilaterally, Normal air movement Cardiovascular: Regular rate/rhythm, Normal S1 S2 Gastrointestinal: Normal bowel sounds, No tenderness Musculoskeletal: No tenderness Integumentary: No rashes Neurological: Normal speech, Normal tone, Normal affect Lymphatics: No axilla or inguinal lymphadenopathy - Studies Medications List Reviewed: Yes Assessment And Plan - Current Problems (Diagnosis) (1) Acute appendicitis Current Visit: Yes Status: Acute Plan: Acute appendicitis noted on the abdominal CT. -general surgery consulted. Recommendations appreciated at this time. -S/P Lap Appendectomy. Doing well overall. -Okay to DC per Gen Surgery Reccs Qualifiers: Acute appendicitis type: unspecified acute appendicitis type Qualified Code (s): K35.80 - Unspecified acute appendicitis (2) Symptomatic anemia Current Visit: Yes Status: Acute Plan: Symptomatic anemia most likely secondary to acute blood loss secondary to heavy menstruation and uterine fibroids. -H/H today is 6.8. will transfuse 2 units of red blood cells at this time -monitor H&H closely -Having Vaginal Bleeding now (3) UTI (urinary tract infection) Current Visit: Yes Status: Acute Plan: UA with UTI -urine culture negative -Stop Abx Qualifiers: Urinary tract infection type: acute cystitis Hematuria presence: without hematuria Qualified Code(s): N30.00 - Acute cystitis without hematuria (4) Abnormal ultrasound Current Visit: Yes Status: Acute Plan: Abnormal transvaginal ultrasound -OBGYN consulted. Reccs appreciated -Endometrial biospy -Depoprevera IM x 1 -F.U OP on wednesday for PAP smear -Concern for Possible cervical cancer Discharge Plan: Home Plan to discharge in: 48 Hours - Code Status/Comfort Care Code Status Assessed: Yes Critical Care: No
[2018-07-02 22:05] LABS: Hematocrit 27.6 % (36.0-45.0)
[2018-07-02] MEDS ORDERED: MEDROXYPROGEST ACET 150 MG/ML IM ONE (22:34)
[2018-07-02] MEDS: MEDROXYPROGEST ACET 150 MG/ML IM SCH (22:57)
[2018-07-03] MEDS: METRONIDAZOLE 500mg IVPB 500 MG/100 ML BAG IV SCH ×2 (02:48→09:29)
[2018-07-03] MEDS: HYDROCODONE/APAP 5/325 MG TAB PO PRN ×2 (04:47→09:33)
[2018-07-03 05:44] LABS: Absolute Monocytes 0.3 K/uL (0.1-1.3); Absolute Neutrophil 3.1 K/uL (1.8-8.0); Basophils % 0.8 % (0-1.3); Eosinophils % 2.8 % (0-4.4); Hematocrit 25.2 % (36.0-45.0); Lymphocytes % 21.4 % (15.3-44.8); MPV 9.4 fL (7.6-11.3); Monocytes % 7.5 % (3.3-12.3); RBC Red Blood Cell Count 3.35 M/uL (3.86-4.86)
[2018-07-03 07:51] LABS: ALT/SGPT 31 U/L (12-78); AST/SGOT 28 U/L (15-37); Alkaline Phosphatase 64 U/L (45-117); BUN Blood Urea Nitrogen 6 mg/dL (7-18); Bicarbonate 27 mmol/L (21-32); Bilirubin Total 1.6 mg/dL (0.2-1.0); Glucose Level 99 mg/dL (74-106); Phosphorus 2.1 mg/dL (2.5-4.9); Potassium 3.7 mmol/L (3.5-5.1); Protein, Total 6.3 g/dL (6.4-8.2); Sodium Level 143 mmol/L (136-145)
[2018-07-03] MEDS ORDERED: POTASSIUM PHOS IN 0.9 % NACL 15 MMOL/250 ML BAG IV ONE (09:00)
[2018-07-03] MEDS: CIPROFLOXACIN 400mg IV 400 MG/200 ML BAG IV SCH (09:29)
[2018-07-03] MEDS: NA CHLORIDE 0.9% 1,000 ML IV SCH (09:37)
[2018-07-03] MEDS: MEDROXYPROGEST ACET 150 MG/ML IM SCH (12:20)
--- NOTE | 2018-07-03 12:56 | P.DS ---
Admission Date: 07/01/18 Discharge Date: 07/03/18 Primary Care Provider: None Disposition: ROUTINE DISCHARGE Discharge Condition: GOOD Reason for Admission: N/V and Dizziness Consultations: General surgery OBGYN Procedures: Endometrial biopsy laparoscopic appendectomy - Problems (1) Acute appendicitis Current Visit: Yes Status: Acute Qualifiers: Acute appendicitis type: unspecified acute appendicitis type Qualified Code (s): K35.80 - Unspecified acute appendicitis (2) Symptomatic anemia Current Visit: Yes Status: Acute (3) UTI (urinary tract infection) Current Visit: Yes Status: Acute Qualifiers: Urinary tract infection type: acute cystitis Hematuria presence: without hematuria Qualified Code(s): N30.00 - Acute cystitis without hematuria (4) Abnormal ultrasound Current Visit: Yes Status: Acute Brief History of Present Illness: A 42-year-old female, with medical history presented to the ED complaining of having some generalized abdominal pain. Patient also complained of nausea vomiting and coughing x2 days. Has been getting progressively worse and thus decided to come to the ER. Patient's at bedside states that patient was asked to go see a primary care doctor after having her blood work done a month ago and stated she needed blood transfusion at that time however was not able to get it done due to no insurance. Patient states that the abdominal pain began in the lower abdomen in the periumbilical region and was radiating to the right upper quadrant. Patient also had associated nausea vomiting and headache with it. She stated that the pain felt much like menstrual pain, only much more severe in the lower abdomen. She has not had similar episodes before in the past. She has a history of menstrual complaints , having several menstrual periods per month with heavy bleeding. As she has no insurance, she has not been followed up with any physician, and has not had any workup of any kind regarding this. In the ER patient was found to have a hemoglobin of [address] that was consistent with appendicitis this patient was admitted to the hospital for further treatment. Hospital Course: Overall during the hospital stay patient main stable Patient was initially admitted to the hospital for acute appendicitis but was found on abdominal CT and symptomatic anemia. For patient's acute appendicitis general surgery was consulted who who did a laparoscopic appendectomy for the patient. Patient tolerated the procedure well and there were no complications further noted from the procedure itself. Patient was doing well passed gas and was ambulating and tolerating her diet well. For patient symptomatic anemia patient most likely had symptomatic anemia secondary to acute blood loss secondary to menorrhagia. OBGYN was consulted who recommended patient get an endometrial biopsy. Endometrial biopsy was done here in the hospital along with Depo-Provera shot. Patient had controlled vaginal bleeding after. Patient was transfused 4 units of packed RBC here. Did do well overall. And then was discharged home to follow up with OBGYN on Wednesday for a cervical biopsy given the high risk suspicion of cervical cancer on physical exam. Patient understand the plan and agree will pull to plan and thus was discharged home under stable condition Patient was found to have a UTI on the UA however urine culture were negative for any acute abnormality. Patient did not have any symptoms from the UTI and thus was not prescribed any antibiotics for it. Vital Signs/Physical Exam: Temp Pulse Resp BP Pulse Ox 97.2 F 75 18 125/66 98 07/03/18 08:00 07/03/18 08:00 07/03/18 08:00 07/03/18 08:00 07/03/18 08:00 General: Alert, In no apparent distress HEENT: Atraumatic, PERRLA, EOMI Neck: Supple, JVD not distended Respiratory: Clear to auscultation bilaterally, Normal air movement Cardiovascular: Regular rate/rhythm, Normal S1 S2 Gastrointestinal: Normal bowel sounds, No tenderness Musculoskeletal: No tenderness Integumentary: No rashes Neurological: Normal speech, Normal tone, Normal affect Lymphatics: No axilla or inguinal lymphadenopathy Laboratory Data at Discharge: WBC 4.7 K/uL (4.3-10.9) 07/03/18 05:10 Hgb 8.2 g/dL (12.0-15.0) L 07/03/18 05:10 Hct 25.2 % (36.0-45.0) L 07/03/18 05:10 Plt Count 157 K/uL (152-406) 07/03/18 05:10 Sodium 143 mmol/L (136-145) 07/03/18 05:10 Potassium 3.7 mmol/L (3.5-5.1) 07/03/18 05:10 BUN 6 mg/dL (7-18) L 07/03/18 05:10 Creatinine 0.43 mg/dL (0.55-1.3) L 07/03/18 05:10 Glucose 99 mg/dL (74-106) 07/03/18 05:10 Phosphorus 2.1 mg/dL (2.5-4.9) L 07/03/18 05:10 Magnesium 2.0 mg/dL (1.8-2.4) 07/01/18 16:10 Total Bilirubin 1.6 mg/dL (0.2-1.0) H 07/03/18 05:10 AST 28 U/L (15-37) 07/03/18 05:10 ALT 31 U/L (12-78) 07/03/18 05:10 Alkaline Phosphatase 64 U/L (45-117) 07/03/18 05:10 Lipase 52 U/L (73-393) L 07/01/18 05:10 Home Medications: NK [No Home Meds] 07/01/18 Patient Discharge Instructions: Please f.u with PCP, Surgery and OBGYN. New medication. Ferous Sulfate 325mg daily Diet: Regular Activity: No lifting more than 10 lbs Followup: Silvano Lou MD [ACTIVE - CAN ADMIT] - 07/04/18 (to see on 07/04/18 for cervical biopsy. ) Kevin Fraga MD [ACTIVE - CAN ADMIT] - 1 Week (call to schedule an appointment)
== END 2018-07-03 13:22 | disposition home or self-care (01) | DRG 342 ==
LOC: ER 04:40 → ERHOLD 11:30 → 3RD-ICU 13:52 → 4TH 14:35
PROVIDERS: ADMIT Family Medicine; ATTEND Family Medicine
PROC: 30233N1 Transfusion of Nonautologous Red Blood Cells into Peripheral Vein, Percutaneous Approach (ICD-10-PCS; 2018-07-01)
PROC: 0DTJ4ZZ Resection of Appendix, Percutaneous Endoscopic Approach (ICD-10-PCS; principal; 2018-07-01 11:30)
PROC: 0UDB7ZX Extraction of Endometrium, Via Natural or Artificial Opening, Diagnostic (ICD-10-PCS; 2018-07-02)
DX: K35.80 Unspecified acute appendicitis (principal); D62 Acute posthemorrhagic anemia; N30.00 Acute cystitis without hematuria; N92.0 Excessive and frequent menstruation with regular cycle; K35.890 Other acute appendicitis without perforation or gangrene; D25.9 Leiomyoma of uterus, unspecified
CPT/HCPCS: 36415; 36430; 70450; 74177; 76705; 76830; 80048; 80053; 80076; 80202; 81003; 81025; 83690; 83735; 84100; 84132; 85014; 85018; 85025; 86850; 86900; 86901; 87086; 87088; 88304; 88305; 99285; J0696; J0744; J1050; J1170; J2250; J2405; J2543; J2704; J2710; J3010; J7030; P9016; Q9967

== ENCOUNTER 2018-09-28 17:37 | Emergency (ER) | payer SELFPAY ==
[2018-09-28] MEDS ORDERED: NA CHLORIDE 0.9% 1,000 ML ONE (21:57)
[2018-09-28] MEDS ORDERED: ONDANSETRON 4 MG/2 ML VIAL ONE (21:57)
[2018-09-28 22:09] LABS: Absolute Lymphocytes (CBC) 1.7 K/uL (0.7-4.9); Absolute Monocytes 0.2 K/uL (0.1-1.3); Absolute Neutrophil 2.8 K/uL (1.8-8.0); Basophils % 1.2 % (0-1.3); Hematocrit 26.9 % (36.0-45.0); Lymphocytes % 35.1 % (15.3-44.8); MPV 8.1 fL (7.6-11.3); Monocytes % 4.7 % (3.3-12.3); RBC Red Blood Cell Count 3.46 M/uL (3.86-4.86)
[2018-09-28 22:27] LABS: BUN Blood Urea Nitrogen 5 mg/dL (7-18); Bicarbonate 21 mmol/L (21-32); Glucose Level 114 mg/dL (74-106); Potassium 3.1 mmol/L (3.5-5.1); Sodium Level 140 mmol/L (136-145)
[2018-09-28 22:30] LABS: Urine Appearance TURBID; Urine Blood 3+ (NEG); Urine Color RED; Urine Glucose NEGATIVE (NEG); Urine Protein 2+ (NEG); Urine Specific Gravity 1.025 (1.005-1.030)
[2018-09-28 22:38] LABS: Urine Bilirubin NEGATIVE (NEG); Urine Microscopic Reflex NO UMIC
[2018-09-28 23:06] LABS: Urine Bacteria >50 /HPF (<20); Urine Culture Reflex Order REFLEXED; Urine RBC TNTC /HPF (NONE SEEN)
[2018-09-29] MEDS ORDERED: CEFTRIAXONE 1000 MG/VIAL ONE ×2 (02:28)
[2018-09-29] MEDS ORDERED: POTASSIUM 25 MEQ EFFERV TAB ONE (02:28)
--- NOTE | 2018-09-29 02:53 | ER ---
Nurse's Notes [facility] Name: Minoo Sykes Age: 42 yrs Sex: Female : 1975 Arrival Date: 09/28/2018 Time: 17:37 Bed 24 Private MD: Diagnosis: Vaginal Bleeding;Anemia;Endometrial Mass Presentation: 09/28 18:14 Presenting complaint: Patient states: "I've been having my period for about 2 months aa5 ago and today it's been the worse and I am passing blood clots today". Pt's states "they took out her appendix about 2 months ago and they found fibroids but they haven't given us the results of the biopsy". Denies pain. Transition of care: patient was not received from another setting of care. Onset of symptoms was 2018. Risk Assessment: Do you want to hurt yourself or someone else? Patient reports no desire to harm self or others. Initial Sepsis Screen: Does the patient meet any 2 criteria? No. Patient's initial sepsis screen is negative. Does the patient have a suspected source of infection? No. Patient's initial sepsis screen is negative. Care prior to arrival: None. 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 - Social history:: Smoking status: Patient/guardian denies using tobacco. - Ebola Screening: : No symptoms or risks identified at this time. - Family history:: not pertinent. - Hospitalizations: : No recent hospitalization is reported. Screenin:40 Abuse screen: Denies threats or abuse. Denies injuries from another. Nutritional ca1 screening: No deficits noted. Tuberculosis screening: No symptoms or risk factors identified. Fall Risk None identified. Assessment: 20:40 General: Appears in no apparent distress. comfortable, Behavior is calm, cooperative, ca1 appropriate for age. Pain: Denies pain. Neuro: Level of Consciousness is awake, alert, obeys commands, Oriented to person, place, time, situation. Cardiovascular: Heart tones S1 S2 present Capillary refill < 3 seconds Patient's skin is warm and dry. Respiratory: Airway is patent Respiratory effort is even, unlabored, Respiratory pattern is regular, symmetrical. GI: Abdomen is round non-distended. : Urine is bloody Reports vaginal bleeding that is with clots, pt reports to have her monthly period since 8 days ago. Usually with a heavy flow, but today is heavier than usual with 8-9 pads change today and with passing of blood clots. EENT: No deficits noted. No signs and/or symptoms were reported regarding the EENT system. Derm: Skin is intact, is healthy with good turgor, Skin is pink, warm \\T\\ dry. Musculoskeletal: Circulation, motion, and sensation intact. Capillary refill < 3 seconds. 21:40 Reassessment: Patient appears in no apparent distress at this time. Patient and/or ca1 family updated on plan of care and expected duration. Pain level reassessed. Patient is alert, oriented x 3, equal unlabored respirations, skin warm/dry/pink. 21:40 Reassessment: Pt to US. ca1 22:31 Reassessment: Patient appears in no apparent distress at this time. Patient and/or ca1 family updated on plan of care and expected duration. Pain level reassessed. Patient is alert, oriented x 3, equal unlabored respirations, skin warm/dry/pink. Pt back from US. 23:40 Reassessment: Patient appears in no apparent distress at this time. Patient is alert, ca1 oriented x 3, equal unlabored respirations, skin warm/dry/pink. 09/29 00:49 Reassessment: Reassessment: Patient appears in no apparent distress at this time. ca1 Patient is alert, oriented x 3, equal unlabored respirations, skin warm/dry/pink. Vital Signs: 09/28 18:15 BP 145 / 78; Pulse 118; Resp 16 S; Temp 98.4(TE); Pulse Ox 98% on R/A; Height 4 ft. 11 aa5 in. (149.86 cm) (R); Pain 0/10; 20:40 BP 121 / 75; Pulse 114; Resp 19; Pulse Ox 99% on R/A; ca1 21:40 BP 118 / 74; Pulse 112; Resp 19; Pulse Ox 100% on R/A; ca1 22:31 BP 114 / 68; Pulse 110; Resp 19; Pulse Ox 100% on R/A; ca1 23:40 BP 116 / 62; Pulse 117; Resp 19; Pulse Ox 95% on R/A; ca1 04 00:49 BP 112 / 65; Pulse 107; Resp 18; Pulse Ox 100% on R/A; ca1 03:00 BP 123 / 70 RA; Pulse 96; Resp 16 S; Pulse Ox 100% on R/A; rv ED Course: 09/28 17:37 Patient arrived in ED. mr 18:12 Arm band placed on. aa5 18:15 Triage completed. aa5 20:40 Patient has correct armband on for positive identification. Placed in gown. Bed in low ca1 position. Call light in reach. Side rails up X 1. Pulse ox on. NIBP on. Warm blanket given. 20:47 Ayleen Jorge, RN is Primary Nurse. ca1 20:54 Ra Robison MD is Attending Physician. wa 21:45 Inserted saline lock: 20 gauge in right antecubital area, using aseptic technique. ca1 Blood collected. 22:19 Transvaginal Study Probe In Process Unspecified. EDMS 23:50 Assist provider with pelvic exam: Set up pelvic tray. Performed by Ayleen Jorge RN ca1 Patient tolerated well. 09/29 02:51 Gabrielle Alfonso MD is Referral Physician. wa 03:00 IV discontinued, bleeding controlled, No redness/swelling at site. Pressure dressing rv applied. Administered Medications: 09/28 21:52 Drug: NS 0.9% 1000 ml Route: IV; Rate: 1 bolus; Site: right antecubital; ca1 09/29 02:35 Follow up: IV Status: Completed infusion rv 09/28 21:55 Drug: Zofran 4 mg Route: IVP; Site: right antecubital; ca1 09/29 02:35 Follow up: Response: Nausea is decreased rv 02:30 Drug: Rocephin - (cefTRIAXone) 2 grams Route: IVPB; Infused Over: 30 mins; Site: right rv antecubital; 02:30 Drug: Potassium Effervescent Tablet 50 mEq Route: PO; rv Outcome: 02:53 Discharge ordered by . wa 03:00 Discharged to home ambulatory. rv 03:00 Condition: good 03:00 Discharge instructions given to patient, family, Instructed on discharge instructions, follow up and referral plans. medication usage, Demonstrated understanding of instructions, follow-up care, medications, Prescriptions given X 2. 03:01 Patient left the ED. rv Signatures: Dispatcher [employer] TITO Bev Gonzalez Ramsey, Emilia, RN RN aa5 Ra Robison MD MD wa Vicente, Ronaldo, RN RN rv Luisito, TR Abbasi RN ca1 Corrections: (The following items were deleted from the chart) 09/28 18:16 18:14 Acuity: BERTA 3 aa5 aa5
--- NOTE | 2018-09-29 02:53 | EDPHYS ---
Physician Documentation [facility] Name: Minoo Sykes Age: 42 yrs Sex: Female : 1975 Arrival Date: 09/28/2018 Time: 17:37 Bed 24 Private MD: ED Physician Ra Robison HPI: 09/29 09:05 This 42 yrs old Female presents to ER via Ambulatory with complaints of wa Vaginal Bleeding. 09:05 The patient presents with vaginal bleeding that is heavy. Onset: The symptoms/episode wa began/occurred 2 month(s) ago, today, passed a big clot. Modifying factors: The symptoms are alleviated by nothing, the symptoms are aggravated by nothing. Associated signs and symptoms: Pertinent positives: vaginal bleeding, Pertinent negatives: cramping, dysuria, fever, urinary frequency, vomiting. Severity of symptoms: At their worst the symptoms were moderate, in the emergency department the symptoms are actually worse, moderately. The patient has experienced similar episodes in the past, a few times. The patient has been recently seen by a physician: had biopsy but states did not get a call back. 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 - Social history:: Smoking status: Patient/guardian denies using tobacco. - Ebola Screening: : No symptoms or risks identified at this time. - Family history:: not pertinent. - Hospitalizations: : No recent hospitalization is reported. ROS: 09/29 09:07 Positive for vaginal bleeding. wa Constitutional: Negative for fever, chills, and weight loss, Eyes: Negative for injury, pain, redness, and discharge, ENT: Negative for injury, pain, and discharge, Neck: Negative for injury, pain, and swelling, Cardiovascular: Negative for chest pain, palpitations, and edema, Respiratory: Negative for shortness of breath, cough, wheezing, and pleuritic chest pain, Abdomen/GI: Negative for abdominal pain, nausea, vomiting, diarrhea, and constipation, Back: Negative for injury and pain, MS/Extremity: Negative for injury and deformity, Skin: Negative for injury, rash, and discoloration, Neuro: Negative for headache, weakness, numbness, tingling, and seizure, Psych: Negative for depression, anxiety, suicide ideation, homicidal ideation, and hallucinations. All other systems are negative. Exam: 09:08 Constitutional: This is a well developed, well nourished patient who is awake, alert, wa and in no acute distress. Head/Face: Normocephalic, atraumatic. Eyes: Pupils equal round and reactive to light, extra-ocular motions intact. Lids and lashes normal. Conjunctiva and sclera are non-icteric and not injected. Cornea within normal limits. Periorbital areas with no swelling, redness, or edema. ENT: Nares patent. No nasal discharge, no septal abnormalities noted. Tympanic membranes are normal and external auditory canals are clear. Oropharynx with no redness, swelling, or masses, exudates, or evidence of obstruction, uvula midline. Mucous membranes moist. Neck: Trachea midline, no thyromegaly or masses palpated, and no cervical lymphadenopathy. Supple, full range of motion without nuchal rigidity, or vertebral point tenderness. No Meningismus. Chest/axilla: Normal chest wall appearance and motion. Nontender with no deformity. No lesions are appreciated. Cardiovascular: Regular rate and rhythm with a normal S1 and S2. No gallops, murmurs, or rubs. Normal PMI, no JVD. No pulse deficits. Respiratory: Lungs have equal breath sounds bilaterally, clear to auscultation and percussion. No rales, rhonchi or wheezes noted. No increased work of breathing, no retractions or nasal flaring. Abdomen/GI: Soft, non-tender, with normal bowel sounds. No distension or tympany. No guarding or rebound. No evidence of tenderness throughout. Back: No spinal tenderness. No costovertebral tenderness. Full range of motion. Skin: Warm, dry with normal turgor. Normal color with no rashes, no lesions, and no evidence of cellulitis. MS/ Extremity: Pulses equal, no cyanosis. Neurovascular intact. Full, normal range of motion. Neuro: Awake and alert, GCS 15, oriented to person, place, time, and situation. Cranial nerves II-XII grossly intact. Motor strength 5/5 in all extremities. Sensory grossly intact. Cerebellar exam normal. Normal gait. Psych: Awake, alert, with orientation to person, place and time. Behavior, mood, and affect are within normal limits. 09:08 : CVA tenderness, is absent, Pelvic Exam: External exam: is normal, Speculum exam: scant bleeding, no cervicitis, os that is closed, blood noted in vault, mild. Vital Signs: 09/28 18:15 BP 145 / 78; Pulse 118; Resp 16 S; Temp 98.4(TE); Pulse Ox 98% on R/A; Height 4 ft. 11 aa5 in. (149.86 cm) (R); Pain 0/10; 20:40 BP 121 / 75; Pulse 114; Resp 19; Pulse Ox 99% on R/A; ca1 21:40 BP 118 / 74; Pulse 112; Resp 19; Pulse Ox 100% on R/A; ca1 22:31 BP 114 / 68; Pulse 110; Resp 19; Pulse Ox 100% on R/A; ca1 23:40 BP 116 / 62; Pulse 117; Resp 19; Pulse Ox 95% on R/A; ca1 09/29 00:49 BP 112 / 65; Pulse 107; Resp 18; Pulse Ox 100% on R/A; ca1 03:00 BP 123 / 70 RA; Pulse 96; Resp 16 S; Pulse Ox 100% on R/A; rv MDM: 09/28 20:54 Patient medically screened. la 09/29 09:09 Differential diagnosis: menometrorrhagia, menorrhea, uterine fibroids. la 09:09 Data reviewed: vital signs, nurses notes, lab test result(s), radiologic studies. Test la interpretation: by ED physician or midlevel provider: labs noted with mild anemia and UTI. US noted for mass in the endometrium. fibroid vs mass. Response to treatment: the patient's symptoms have markedly improved after treatment. 09:10 ED course: d/c'd with seaming inspector f/u. FeSO4 and abx scripted for. advised to f/u with the la biopsy results. 09/28 21:40 Order name: Abo/rh Typing; Complete Time: 02:49 la 09/28 21:40 Order name: Basic Metabolic Panel; Complete Time: 02:10 la 09/28 21:40 Order name: CBC with Diff; Complete Time: 02:49 la 09/28 21:40 Order name: Urine Microscopic Only; Complete Time: 02:49 la 09/28 22:16 Order name: Urinalysis; Complete Time: 02:10 [facility] 09/28 21:40 Order name: Urine Test (obtain specimen); Complete Time: 22:02 la 09/28 21:53 Order name: Transvaginal Study Probe [facility] 09/28 23:07 Order name: Urine Culture [facility] 09/28 21:40 Order name: IV Saline Lock; Complete Time: 22: la 09/28 21:40 Order name: Labs collected and sent; Complete Time: 22: la 09/28 21:40 Order name: NPO; Complete Time: 22: la 09/28 21:40 Order name: Urine Dipstick-Ancillary (obtain specimen); Complete Time: 22: la 09/28 21:41 Order name: Pelvic Exam Setup; Complete Time: 22:19 la Administered Medications: 09/28 21:52 Drug: NS 0.9% 1000 ml Route: IV; Rate: 1 bolus; Site: right antecubital; ca1 09/29 02:35 Follow up: IV Status: Completed infusion rv 09/28 21:55 Drug: Zofran 4 mg Route: IVP; Site: right antecubital; ca1 09/29 02:35 Follow up: Response: Nausea is decreased rv 02:30 Drug: Rocephin - (cefTRIAXone) 2 grams Route: IVPB; Infused Over: 30 mins; Site: right rv antecubital; 02:30 Drug: Potassium Effervescent Tablet 50 mEq Route: PO; rv Disposition: 09/29/18 02:53 Discharged to Home. Impression: Vaginal Bleeding, Anemia, Endometrial Mass. - Condition is Stable. - Discharge Instructions: Urinary Tract Infection, Adult, [id number], Abnormal Uterine Bleeding, [id number]. - Prescriptions for Ferrous Sulfate 325 mg (65 mg Iron) Oral Tablet - take 1 tablet by ORAL route every 8 hours; 90 tablet. Keflex 500 mg Oral Capsule - take 1 capsule by ORAL route every 8 hours for 5 days; 15 capsule. - Medication Reconciliation Form, Thank You Letter, Antibiotic Education, Prescription Opioid Use form. - Follow up: Gabrielle Alfonso MD; When: 1 - 2 days; Reason: Recheck today's complaints. - Notes: follow up with the ROUTING CLERK doctor for further evaluation of the mass in your uterus. take medication as prescribed Signatures: Dispatcher [employer] EDSD Emilia Mustafa, RN RN aa5 Ra Robison MD MD wa Vicente, Ronaldo, RN RN rv Luisito, Ayleen RN RN ca1 Corrections: (The following items were deleted from the chart) 09/28 21:53 21:49 Pelvis Complete+US.RAD.BRZ ordered. EDMS EDMS 22:42 22:16 URINALYSIS+U.LAB.BRZ ordered. EDSD EDSD 09/29 03:01 02:53 09/29/2018 02:53 Discharged to Home. Impression: Vaginal Bleeding; Anemia; rv Endometrial Mass. Condition is Stable. Forms are Medication Reconciliation Form, Thank You Letter, Antibiotic Education, Prescription Opioid Use. Follow up: Gabrielle Alfonso; When: 1 - 2 days; Reason: Recheck today's complaints. anmol
--- NOTE | 2018-09-29 08:24 | RAD REPORT ---
EXAM DESCRIPTION: US - Transvaginal Study Probe - 09/28/2018 10:18 pm CLINICAL HISTORY: Severe vaginal bleeding, pelvic pain COMPARISON: Ultrasound July 01, 2018, CT study July 01, 2018 TECHNIQUE: Endovaginal sonography was performed. FINDINGS: Uterus is approximately 9.6 x 7.2 x 8.7 cm. There is a central 5.4 centimeter solid mass i dentified. The mass matches prior imaging studies. This is most likely an intramural and submucosal f ibroid rather than a primary endometrial mass. Primary endometrial mass cannot be excluded. Central m ass mostly distorts or obscures the endometrium. A short segment of echogenic tissue 5 mm in thicknes s is seen believed to be displaced endometrium. Right ovary contains a small 15 millimeter cyst. No suspicious ovarian or adnexal finding. No free fl uid or blood in the cul-de-sac. IMPRESSION: Approximately 5.4 centimeter solid mass central uterus. This is most likely a large intr amural and submucosal fibroid. Endometrial origin mass is not excluded but felt to be lesser in likelihood. No suspicious ovarian or adnexal finding.
== END 2018-09-29 03:01 | disposition home or self-care (01) ==
LOC: ER 17:37
DX: D64.9 Anemia, unspecified (principal); N85.8 Other specified noninflammatory disorders of uterus
CPT/HCPCS: 36415; 76830; 80048; 81003; 81015; 85025; 86900; 86901; 87086; 87088; 96361; 96374; 96375; 99284; J2405; J7030

== ENCOUNTER 2022-11-13 14:24 | Emergency (ER) | payer BC ==
[2022-11-13 15:55] LABS: Specific Gravity 1.023 (1.005-1.030)
[2022-11-13 16:09] LABS: Specific Gravity 1.023 (1.005-1.030); Urine Bacteria None Seen /HPF (<20); Urine Bilirubin NEGATIVE (Negative); Urine Blood 2+ (Negative); Urine Clarity Clear (Clear); Urine Color Yellow (Yellow); Urine Glucose NEGATIVE (Negative); Urine Mucus Slight /HPF (None Seen); Urine Protein 1+ (Negative); Urine RBC 21-50 /HPF (None Seen); Urine Urobilinogen Normal (Normal); Urine pH 5.5 (5.0-7.0)
[2022-11-13] MEDS ORDERED: KETOROLAC 30 MG/ML INJ ONE (16:16)
[2022-11-13] MEDS ORDERED: ONDANSETRON 4 MG/2 ML VIAL ONE (16:16)
[2022-11-13] MEDS ORDERED: NA CHLORIDE 0.9% 1,000 ML ONE (16:16)
[2022-11-13 16:22] LABS: Absolute Lymphocytes (CBC) 0.7 K/uL (0.7-4.9); Hematocrit 29.7 % (36.0-45.0); Lymphocytes % 12.8 % (15.3-44.8); MCV 69.4 fL (80-100); MPV 8.1 fL (7.6-11.3); RBC Red Blood Cell Count 4.28 M/uL (3.86-4.86)
[2022-11-13 16:42] LABS: Bilirubin Total 1.3 mg/dL (0.2-1.0); Potassium 3.6 mEq/L (3.5-5.1); Protein, Total 7.9 g/dL (6.4-8.2)
--- NOTE | 2022-11-13 17:00 | RAD REPORT ---
EXAM DESCRIPTION: CTAbdomen Pelvis W Contrast - 11/13/2022 4:50 pm CLINICAL HISTORY: Abdominal pain. ABD PAIN COMPARISON: Abdomen Pelvis W Contrast dated 07/01/2018; Transvaginal Study Probe dated 07/01/2018; Tra nsvaginal Study Probe dated 09/28/2018 TECHNIQUE: Biphasic CT imaging of the abdomen and pelvis was performed with 100 ml non-ionic IV cont rast. All CT scans are performed using dose optimization technique as appropriate and may include automated exposure control or mA/KV adjustment according to patient size. FINDINGS: The lung bases are clear. The liver demonstrates diffuse fatty infiltration. Cholecystectomy. Spleen, pancreas, adrenal glands and kidneys are within normal limits. No bowel obstruction, free air, free fluid or abscess. The appendix is normal. No evidence of signi ficant lymphadenopathy. Rounded 5 cm mass within the fundal atrium. No suspicious bony findings. IMPRESSION: No acute intra-abdominal or pelvic finding. 5 cm mass in the fundal endometrium probably represents a submucosal fibroid. Follow-up nonemergent p elvic ultrasound would be advised.
--- NOTE | 2022-11-13 17:10 | EDPHYS ---
Physician Documentation [facility] Name: Minoo Sykes Age: 46 yrs Sex: Female : 1975 Arrival Date: 11/13/2022 Time: 14:24 Bed 17 Private MD: ED Physician Alex Nixon HPI: 11/13 17:08 This 46 yrs old Female presents to ER via Wheelchair with complaints of kb Abdominal Pain. 17:08 The patient presents with abdominal pain. Onset: The symptoms/episode began/occurred kb this morning. The symptoms do not radiate. Associated signs and symptoms: Pertinent positives: nausea, Pertinent negatives: fever, vomiting. The symptoms are described as constant. Modifying factors: The symptoms are alleviated by nothing, the symptoms are aggravated by nothing. Severity of pain: At its worst the pain was moderate in the emergency department the pain is unchanged. The patient has not experienced similar symptoms in the past. The patient has not recently seen a physician. Historical: - Allergies: 14:47 No Known Allergies; hb - Home Meds: 14:47 None [Active]; hb - PMHx: 14:47 Anemia; hb - PSHx: 14:47 Appendectomy; section; Cholecystectomy; hb - Immunization history:: Adult Immunizations up to date. - Social history:: Smoking status: Patient denies any tobacco usage or history of. ROS: 17:07 Constitutional: Negative for fever, chills, and weight loss. kb 17:07 Abdomen/GI: Positive for abdominal pain, nausea. 17:07 All other systems are negative. Exam: 17:07 Constitutional: This is a well developed, well nourished patient who is awake, alert, kb and in no acute distress. Head/Face: Normocephalic, atraumatic. ENT: Moist Mucous membranes Cardiovascular: Regular rate and rhythm with a normal S1 and S2. No gallops, murmurs, or rubs. No pulse deficits. Respiratory: Respirations even and unlabored. No increased work of breathing. Talking in full sentences Skin: Warm, dry with normal turgor. Normal color. MS/ Extremity: Pulses equal, no cyanosis. Neurovascular intact. Full, normal range of motion. Neuro: Awake and alert, GCS 15, oriented to person, place, time, and situation. Moves all extremities. Normal gait. 17:07 Abdomen/GI: Inspection: abdomen appears normal, healed surgical sites without redness, swelling or warmth, Bowel sounds: normal, Palpation: soft, in all quadrants, mild abdominal tenderness, in the right upper quadrant. Vital Signs: 14:32 BP 157 / 87; Pulse 95; Resp 16; Temp 98.3; Pulse Ox 100% on R/A; Weight 74.84 kg; hb Height 4 ft. 9 in. ; Pain 8/10; 16:14 BP 155 / 82; Pulse 84; Resp 18; Pulse Ox 97% on R/A; Pain 8/10; ld1 14:32 Body Mass Index 35.71 (74.84 kg, 144.78 cm) hb 14:32 Pain Scale: Adult hb 16:14 Pain Scale: Adult ld1 MDM: 14:33 Patient medically screened. rn 17:08 Differential diagnosis: gastroesophageal reflux disease, non-specific abd pain, kb pancreatitis, abscess. Data reviewed: vital signs, nurses notes. Historians other than the Patient: Family Member: sister. Counseling: I had a detailed discussion with the patient and/or guardian regarding: the historical points, exam findings, and any diagnostic results supporting the discharge/admit diagnosis, lab results, radiology results, the need for outpatient follow up, a family practitioner, a general surgeon, to return to the emergency department if symptoms worsen or persist or if there are any questions or concerns that arise at home. 11/13 14:47 Order name: CBC with Diff; Complete Time: 16:23 kb 11/13 14:47 Order name: CMP; Complete Time: 16:43 kb 11/13 14:47 Order name: Lipase; Complete Time: 16:43 kb 11/13 14:47 Order name: Test, Urine; Complete Time: 16:11 kb 11/13 14:47 Order name: Urinalysis w/ reflexes; Complete Time: 16:11 kb 11/13 14:47 Order name: CT Abd/Pelvis - IV Contrast Only; Complete Time: 17:06 kb 11/13 14:47 Order name: IV Saline Lock; Complete Time: 16:14 kb 11/13 14:47 Order name: Labs collected and sent; Complete Time: 16:14 kb Administered Medications: 16:13 Drug: NS 0.9% IV 1000 ml Route: IV; Rate: 1 bolus; Site: right antecubital; ld1 16:13 Drug: Ondansetron IVP 4 mg Route: IVP; Site: right antecubital; ld1 16:14 Drug: TORadol - Ketorolac IVP 15 mg Route: IVP; Site: right antecubital; ld1 Disposition Summary: 11/13/22 17:09 Discharge Ordered Location: Home kb Condition: Stable kb Diagnosis - Upper abdominal pain, unspecified kb Followup: kb - With: Emergency Department - When: As needed - Reason: Worsening of condition Followup: kb - With: Private Physician - When: 2 - 3 days - Reason: Recheck today's complaints, Continuance of care, Re-evaluation by your physician Discharge Instructions: - Discharge Summary Sheet kb - Abdominal Pain, Adult, [id number] kb Forms: - Medication Reconciliation Form kb - Thank You Letter kb - Antibiotic Education kb - Prescription Opioid Use kb Prescriptions: - Zofran 4 mg Oral Tablet - take 1 tablet by ORAL route every 6 hours As needed; 12 tablet; Refills: 0, kb Product Selection Permitted - dicyclomine 20 mg Oral Tablet - take 1 tablet by ORAL route 4 times per day As needed; 20 tablet; Refills: 0, kb Product Selection Permitted Signatures: Dispatcher [employer] Gricelda Martinez, DEBBY-Munira OHP-Alex Schmidt MD MD rn Baxter, Heather, RN RN Lulu Mcrae RN RN ld1
--- NOTE | 2022-11-13 17:10 | ER ---
Nurse's Notes [facility] Name: Minoo Sykes Age: 46 yrs Sex: Female : 1975 Arrival Date: 11/13/2022 Time: 14:24 Bed 17 Private MD: Diagnosis: Upper abdominal pain, unspecified Presentation: 11/13 14:32 Chief complaint: Right sided abdominal pain and nausea since this morning. Pt is approx hb 3 weeks s/p cholecystectomy by Dr. Caba. Onset of symptoms was November 13, 2022. 14:32 Acuity: BERTA 3 hb 14:33 Coronavirus screen: At this time, the client does not indicate any symptoms associated hb with coronavirus-19. Ebola Screen: No symptoms or risks identified at this time. Initial Sepsis Screen: Does the patient meet any 2 criteria? No. Patient's initial sepsis screen is negative. Does the patient have a suspected source of infection? No. Patient's initial sepsis screen is negative. Risk Assessment: Do you want to hurt yourself or someone else? Patient reports no desire to harm self or others. 14:33 Method Of Arrival: Wheelchair hb Triage Assessment: 14:48 General: Appears in no apparent distress. Behavior is calm, cooperative. Pain: Pain hb currently is 8 out of 10 on a pain scale. Neuro: Level of Consciousness is awake, alert, obeys commands, Oriented to person, place, time, situation. Cardiovascular: Patient's skin is warm and dry. Respiratory: Respiratory effort is even, unlabored, Respiratory pattern is regular, symmetrical. GI: Reports lower abdominal pain, upper abdominal pain, nausea. Historical: - Allergies: 14:47 No Known Allergies; hb - Home Meds: 14:47 None [Active]; hb - PMHx: 14:47 Anemia; hb - PSHx: 14:47 Appendectomy; section; Cholecystectomy; hb - Immunization history:: Adult Immunizations up to date. - Social history:: Smoking status: Patient denies any tobacco usage or history of. Screenin:14 [facility] ED Fall Risk Assessment (Adult) History of falling in the last 3 months, ld1 including since admission No falls in past 3 months (0 pts). Abuse screen: Denies threats or abuse. Denies injuries from another. Nutritional screening: No deficits noted. Tuberculosis screening: No symptoms or risk factors identified. Assessment: 16:14 General: Appears in no apparent distress. uncomfortable, Behavior is calm, cooperative, ld1 appropriate for age. Pain: Complains of pain in abdomen Pain does not radiate. Pain currently is 8 out of 10 on a pain scale. Quality of pain is described as throbbing. Neuro: Level of Consciousness is awake, alert, obeys commands, Oriented to person, place, time, situation. Cardiovascular: Capillary refill < 3 seconds Patient's skin is warm and dry. Rhythm is sinus rhythm. Respiratory: Airway is patent Respiratory effort is even, unlabored. GI: Abdomen is round non-distended, Bowel sounds present X 4 quads. Abd is soft Abdomen is tender to palpation X 4 quads. Reports lower abdominal pain, upper abdominal pain, bloating, nausea. : No signs and/or symptoms were reported regarding the genitourinary system. EENT: No signs and/or symptoms were reported regarding the EENT system. Derm: No signs and/or symptoms reported regarding the dermatologic system. Musculoskeletal: No signs and/or symptoms reported regarding the musculoskeletal system. Vital Signs: 14:32 BP 157 / 87; Pulse 95; Resp 16; Temp 98.3; Pulse Ox 100% on R/A; Weight 74.84 kg; hb Height 4 ft. 9 in. ; Pain 8/10; 16:14 BP 155 / 82; Pulse 84; Resp 18; Pulse Ox 97% on R/A; Pain 8/10; ld1 14:32 Body Mass Index 35.71 (74.84 kg, 144.78 cm) hb 14:32 Pain Scale: Adult hb 16:14 Pain Scale: Adult ld1 ED Course: 14:27 Patient arrived in ED. mr 14:33 Alex Nixon MD is Attending Physician. rn 14:36 Gricelda Rosenthal FNP-C is [facility]. kb 14:36 Alex Nixon MD is Attending Physician. kb 14:44 Arm band placed on. hb 14:47 Triage completed. hb 15:26 Radiology exam delayed due to lab results not completed at this time. (BUN/Creatinine) jg10 test not completed at this time. IV insertion attempt and/or patient not having appropriate IV at this time. 16:03 Lulu Mcrae, TR is Primary Nurse. ld1 16:14 Patient has correct armband on for positive identification. Placed in gown. Bed in low ld1 position. Call light in reach. Side rails up X2. environmental monitoring technician on. Pulse ox on. NIBP on. Door closed. Noise minimized. Warm blanket given. 16:14 No provider procedures requiring assistance completed. Inserted saline lock: 20 gauge ld1 in right antecubital area, using aseptic technique. Blood collected. 16:17 CBC with Diff Sent. zm 16:17 CMP Sent. 16:17 Lipase Sent. zm 16:52 CT Abd/Pelvis - IV Contrast Only In Process Unspecified. EDMS 17:52 IV discontinued, intact, bleeding controlled, No redness/swelling at site. ld1 Administered Medications: 16:13 Drug: NS 0.9% IV 1000 ml Route: IV; Rate: 1 bolus; Site: right antecubital; ld1 16:13 Drug: Ondansetron IVP 4 mg Route: IVP; Site: right antecubital; ld1 16:14 Drug: TORadol - Ketorolac IVP 15 mg Route: IVP; Site: right antecubital; ld1 Medication: 16:14 VIS not applicable for this client. ld1 Outcome: 17:09 Discharge ordered by . kb 17:52 Discharged to home ambulatory, with family. ld1 17:52 Condition: stable 17:52 Discharge instructions given to patient, family, Instructed on discharge instructions, follow up and referral plans. medication usage, Demonstrated understanding of instructions, follow-up care, medications, Prescriptions given X 2. 17:53 Patient left the ED. ld1 Signatures: Dispatcher [employer] EDNE Gricelda Rosenthal, PARMJIT GUARDADO-Bev Rock Roman, MD MD rn Baxter, Heather, RN RN hb Sims, Lauren, RN RN ld1 Kandy Landry Juliet jMaegan
[2022-11-13 18:23] VITALS: TEMP 98.3
[2022-11-13 18:24] VITALS: BP 155/82; O2SAT 97
== END 2022-11-13 17:53 | disposition home or self-care (01) ==
LOC: ER 14:24
DX: R10.10 Upper abdominal pain, unspecified (principal); R11.0 Nausea
CPT/HCPCS: 85025; 81001; 36415; 81025; 83690; 80053; 74177; Q9967; J2405; J7030

== ENCOUNTER 2022-12-24 02:26 | Emergency (ER) | payer BC ==
[2022-12-24] MEDS ORDERED: MORPHINE 4 MG/ML SYR ONE (03:52)
[2022-12-24] MEDS ORDERED: ONDANSETRON 4 MG/2 ML VIAL ONE (03:53)
[2022-12-24] MEDS ORDERED: NA CHLORIDE 0.9% 1,000 ML ONE (03:53)
[2022-12-24] MEDS ORDERED: KETOROLAC 30 MG/ML INJ ONE (03:53)
[2022-12-24 04:01] LABS: Absolute Lymphocytes (CBC) 0.7 K/uL (0.7-4.9); Lymphocytes % 12.4 % (15.3-44.8); MCV 76.8 fL (80-100); MPV 8.5 fL (7.6-11.3); RBC Red Blood Cell Count 4.82 M/uL (3.86-4.86)
[2022-12-24 04:04] LABS: Calcium Oxalate Crystals- Ur Few /HPF (None Seen); Urine Bacteria <20 /HPF (<20); Urine Bilirubin NEGATIVE (Negative); Urine Blood Negative (Negative); Urine Clarity Extremely Turbid (Clear); Urine Color Yellow (Yellow); Urine Glucose NEGATIVE (Negative); Urine Mucus Slight /HPF (None Seen); Urine Protein TRACE (Negative); Urine RBC <5 /HPF (None Seen); Urine Urobilinogen Normal (Normal)
[2022-12-24 04:18] LABS: SARS-CoV-2 Antigen Rapid Res Negative (Negative)
[2022-12-24 04:22] LABS: Albumin 3.9 g/dL (3.4-5.0); Protein, Total 7.5 g/dL (6.4-8.2)
[2022-12-24 04:25] LABS: C-Reactive Protein 10.6 mg/L (<3.00)
[2022-12-24 05:16] LABS: Anisocytosis 2+; Blood Morphology Comment NOTED (NOT SEEN); Platelet Estimate ADEQ; White Blood Cell Scan OK (OK)
--- NOTE | 2022-12-24 06:18 | EDPHYS ---
Physician Documentation [facility] Name: Minoo Sykes Age: 47 yrs Sex: Female : 1975 Arrival Date: 12/24/2022 Time: 02:26 Bed 6 Private MD: ED Physician Yuriy Gomez HPI: 12/24 03:02 This 47 yrs old Female presents to ER via Ambulatory with complaints of sp4 Vomiting, Pain All Over. 06:13 Patient presents with acute generalized body aches starting yesterday also with sp4 associated several episodes of vomiting without fever. Body aches most prominent in bilateral shoulders. Patient has history of . Patient denied additional symptoms such as diarrhea rash or chills.. 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 - Social history:: Smoking status: Patient denies any tobacco usage or history of. - Family history:: not pertinent. ROS: 06:13 Constitutional: Negative for fever, chills, and weight loss, positive for generalized sp4 body aches. Eyes: Negative for injury, pain, redness, and discharge, ENT: Negative for injury, pain, and discharge, Neck: Negative for injury, pain, and swelling, Cardiovascular: Negative for chest pain, palpitations, and edema, Respiratory: Negative for shortness of breath, cough, wheezing, and pleuritic chest pain, Abdomen/GI: Negative for abdominal pain, diarrhea, and constipation, positive for nausea and vomiting Back: Negative for injury positive for diffuse body aches including back pains : Negative for injury, bleeding, discharge, and swelling, MS/Extremity: Negative for injury and deformity, positive for diffuse body aches Skin: Negative for injury, rash, and discoloration, Neuro: Negative for headache, weakness, numbness, tingling, and seizure, Psych: Negative for depression, anxiety, Allergy/Immunology: Negative for hives, rash, and allergies Endocrine: Negative for neck swelling, polydipsia, polyuria, polyphagia, and weight changes Hematologic/Lymphatic: Negative for swollen nodes, abnormal bleeding, and unusual bruising Exam: 06:13 Constitutional: This is a well developed, well nourished patient who is awake, alert, sp4 and in no acute distress. Head/Face: Normocephalic, atraumatic. Eyes: Pupils equal round and reactive to light, extra-ocular motions intact. Lids and lashes normal. Conjunctiva and sclera are not injected. Cornea within normal limits. Periorbital areas with no swelling, redness, or edema. ENT: Nares patent. No nasal discharge, no septal abnormalities noted. Tympanic membranes are normal and external auditory canals are clear. Oropharynx with no redness, swelling, or masses, exudates, or evidence of obstruction, uvula midline. Mucous membranes moist. Neck: Trachea midline, no thyromegaly or masses palpated, and no cervical lymphadenopathy. Supple, full range of motion without nuchal rigidity, or vertebral point tenderness. Chest/axilla: Normal chest wall appearance and motion. Nontender with no deformity. No lesions are appreciated. Cardiovascular: Regular rate and rhythm with a normal S1 and S2. No gallops, murmurs, or rubs. Normal PMI, no JVD. No pulse deficits. Respiratory: Lungs have equal breath sounds bilaterally, clear to auscultation and percussion. No rales, rhonchi or wheezes noted. No increased work of breathing, no retractions or nasal flaring. Abdomen/GI: Soft, non-tender, with normal bowel sounds. No distension or tympany. No guarding or rebound. No evidence of tenderness throughout. Back: No spinal tenderness. No costovertebral tenderness. Skin: Warm, dry with normal turgor. Normal color with no rashes, no lesions, and no evidence of cellulitis. MS/ Extremity: Pulses equal, no cyanosis. Neurovascular intact. Full, normal range of motion. Neuro: Awake and alert, GCS 15, oriented to person, place, time, and situation. Cranial nerves II-XII grossly intact. Motor strength 5/5 in all extremities. Sensory grossly intact. Psych: Awake, alert, with orientation to person, place and time. Behavior, mood, and affect are within normal limits Vital Signs: 02:38 BP 169 / 82; Pulse 72; Resp 16; Temp 97.9; Pulse Ox 94% ; Weight 76.2 kg; Height 4 ft. kl 11 in. ; Pain 9/10; 05:37 BP 136 / 71; Pulse 71; Resp 17 S; Pulse Ox 97% on R/A; lg3 06:18 BP 138 / 77; Pulse 74; Resp 16; Pulse Ox 94% on R/A; vc1 02:38 Body Mass Index 33.93 (76.20 kg, 149.86 cm) kl 02:38 Pain Scale: Adult kl MDM: 03:02 Patient medically screened. sp4 06:13 Differential diagnosis: Nonspecific abd pain, gastritis, viral gastroenteritis, sp4 gastroenteritis. Data reviewed: vital signs, nurses notes, old medical records, lab test result(s), CBC, electrolytes, Flu: negative hepatic panel, urinalysis. Consideration of Admission/Observation Patient was admitted/placed on observation. Escalation of care including admission/observation considered. ED course: Patient's work-up today is unremarkable except for elevated CRP which is above 10. Patient will be advised on outpatient basis follow-up with primary MD for evaluation for rheumatologic conditions such as lupus or rheumatoid arthritis. At this time will attempt trial of prednisone for the next 5 days also symptomatic medications. . 12/24 03:01 Order name: CBC with Diff; Complete Time: 06: sp 12/24 03:01 Order name: CMP; Complete Time: 06: sp 12/24 03:01 Order name: Lipase; Complete Time: 06: sp4 12/24 03:01 Order name: Urinalysis w/ reflexes; Complete Time: 06:07 [facility] 12/24 03:09 Order name: CRP; Complete Time: 06: [facility] 12/24 03:09 Order name: SARS RAPID; Complete Time: 06: sp4 12/24 03:09 Order name: Influenza Screen (a \T\ B); Complete Time: 06: sp4 12/24 03:09 Order name: Strep; Complete Time: 06:07 sp 12/24 03:09 Order name: CK; Complete Time: 06: [facility] 12/24 03:25 Order name: Test, Urine; Complete Time: 06:07 [facility] 12/24 04:14 Order name: CBC Smear Scan; Complete Time: 06:07 [facility] 12/24 05:40 Order name: Throat Culture EDTX 12/24 03:01 Order name: IV Saline Lock; Complete Time: 03:38 sp4 12/24 03:01 Order name: Labs collected and sent; Complete Time: 03:38 sp4 Administered Medications: 03:08 Drug: morphine IVP or IV 4 mg Route: IVP; Infused Over: 4 mins; Site: right antecubital;lg3 06:26 Follow up: 4mg administered per MD lg3 03:49 Drug: NS 0.9% IV 1000 ml Route: IV; Rate: 1 bolus; Site: right antecubital; lg3 03:50 Drug: Ondansetron IVP 4 mg Route: IVP; Site: right antecubital; lg3 06:27 Follow up: Response: No adverse reaction; Marked relief of symptoms lg3 03:50 Drug: Ketorolac IVP 30 mg Route: IVP; Site: right antecubital; lg3 06:26 Follow up: Response: No adverse reaction lg3 Disposition Summary: 12/24/22 06:18 Discharge Ordered Location: Home sp4 Problem: new sp4 Symptoms: have improved sp4 Condition: Stable sp4 Diagnosis - Generalized body aches, nausea vomiting sp4 Followup: sp4 - With: Johnson Rizzo MD - When: 7 - 10 days - Reason: Recheck today's complaints Discharge Instructions: - Discharge Summary Sheet sp4 - Vomiting, Adult sp4 Forms: - [email or web address] sp4 Prescriptions: - ondansetron 4 mg Oral Tablet,disintegrating - take 1 tablet by ORAL route every 6 hours for 3 days PRN nausea; 30 tablet; sp4 Refills: 0, Product Selection Permitted - Ibuprofen 600 mg Oral Tablet - take 1 tablet by ORAL route every 6 hours As needed take with food; 30 tablet; sp4 Refills: 0, Product Selection Permitted - Tramadol 50 mg Oral Tablet - take 1 tablet by ORAL route every 8 hours as needed; 12 tablet; Refills: 0, sp4 Product Selection Permitted - Prednisone 20 mg Oral Tablet - take 2 tablets by ORAL route once daily for 5 days; 10 tablet; Refills: 0, sp4 Product Selection Permitted Signatures: Dispatcher [facility] Deann Singh RN RN lg3 Yuriy Gomez MD MD sp4
--- NOTE | 2022-12-24 06:18 | ER ---
Nurse's Notes [facility] Name: Minoo Sykes Age: 47 yrs Sex: Female : 1975 Arrival Date: 12/24/2022 Time: 02:26 Bed 6 Private MD: Diagnosis: Generalized body aches, nausea vomiting Presentation: 12/24 02:38 Chief complaint: Patient states: c/o abdominal pain and vomiting since yesterday. kl States "My whole body hurts". Concerned that she has not a her menstrual period x 2 months. Coronavirus screen: Vaccine status: Patient reports receiving the 2nd dose of the covid vaccine. Ebola Screen: Patient negative for fever greater than or equal to 101.5 degrees Fahrenheit, and additional compatible Ebola Virus Disease symptoms. Initial Sepsis Screen: Does the patient meet any 2 criteria? No. Patient's initial sepsis screen is negative. Risk Assessment: Do you want to hurt yourself or someone else? Patient reports no desire to harm self or others. Onset of symptoms was December 23, 2022. 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 - Social history:: Smoking status: Patient denies any tobacco usage or history of. - Family history:: not pertinent. Screenin:36 [facility] ED Fall Risk Assessment (Adult) History of falling in the last 3 months, lg3 including since admission No falls in past 3 months (0 pts). Abuse screen: Denies threats or abuse. Denies injuries from another. Nutritional screening: No deficits noted. Tuberculosis screening: No symptoms or risk factors identified. Assessment: 03:35 General: Appears in no apparent distress. comfortable, Behavior is calm, cooperative. lg3 Pain: Complains of pain in all over. Neuro: No deficits noted. Buckner Agitation-Sedation Scale (RASS): 0 - Alert and Calm Level of Consciousness is awake, alert, obeys commands, Oriented to person, place, time, situation. Cardiovascular: No deficits noted. Capillary refill < 3 seconds Clubbing of nail beds is absent JVD is absent Patient's skin is warm and dry. Respiratory: No deficits noted. Airway is patent Respiratory effort is even, unlabored, Respiratory pattern is regular, symmetrical. GI: No deficits noted. Abdomen is round non-distended, Abd is soft and non tender X 4 quads. Reports lower abdominal pain, upper abdominal pain, nausea, vomiting. : No deficits noted. No signs and/or symptoms were reported regarding the genitourinary system. EENT: No deficits noted. No signs and/or symptoms were reported regarding the EENT system. Derm: No deficits noted. No signs and/or symptoms reported regarding the dermatologic system. Skin is intact, is healthy with good turgor, Skin is dry, Skin is normal, Skin temperature is warm. Musculoskeletal: No deficits noted. No signs and/or symptoms reported regarding the musculoskeletal system. Circulation, motion, and sensation intact. Range of motion: intact in all extremities. 05:36 Reassessment: Patient appears in no apparent distress at this time. No changes from lg3 previously documented assessment. Patient and/or family updated on plan of care and expected duration. Pain level reassessed. Patient is alert, oriented x 3, equal unlabored respirations, skin warm/dry/pink. 06:19 Reassessment: No changes from previously documented assessment. Patient and/or family vc1 updated on plan of care and expected duration. Pain level reassessed. Patient is alert, oriented x 3, equal unlabored respirations, skin warm/dry/pink. Vital Signs: 02:38 BP 169 / 82; Pulse 72; Resp 16; Temp 97.9; Pulse Ox 94% ; Weight 76.2 kg; Height 4 ft. kl 11 in. ; Pain 9/10; 05:37 BP 136 / 71; Pulse 71; Resp 17 S; Pulse Ox 97% on R/A; lg3 06:18 BP 138 / 77; Pulse 74; Resp 16; Pulse Ox 94% on R/A; vc1 02:38 Body Mass Index 33.93 (76.20 kg, 149.86 cm) kl 02:38 Pain Scale: Adult kl ED Course: 02:30 Patient arrived in ED. ja2 02:43 Triage completed. kl 03:01 Yuriy Gomez MD is Attending Physician. sp4 03:21 Deann Singleton, RN is Primary Nurse. lg3 03:36 Patient has correct armband on for positive identification. Placed in gown. Bed in low lg3 position. Call light in reach. Side rails up X 1. Client placed on continuous cardiac and pulse oximetry monitoring. NIBP monitoring applied. Door closed. Noise minimized. Family accompanied patient. 03:36 Arm band placed on right wrist. lg3 03:36 Inserted saline lock: 22 gauge in right antecubital area, using aseptic technique. lg3 Blood collected. 03:38 Test, Urine Sent. lg3 03:38 CK Sent. lg3 03:38 Strep Sent. lg3 03:38 Influenza Screen (a \\T\\ B) Sent. lg3 03:38 SARS RAPID Sent. lg3 03:38 CRP Sent. lg3 03:38 CBC with Diff Sent. lg3 03:38 CMP Sent. lg3 03:38 Lipase Sent. lg3 03:38 Urinalysis w/ reflexes Sent. lg3 04:17 CBC Smear Scan Sent. lg3 06:17 Johnson Rizzo MD is Referral Physician. sp4 06:27 No provider procedures requiring assistance completed. IV discontinued, intact, lg3 bleeding controlled, No redness/swelling at site. Pressure dressing applied. Administered Medications: 03:08 Drug: morphine IVP or IV 4 mg Route: IVP; Infused Over: 4 mins; Site: right antecubital;lg3 06:26 Follow up: 4mg administered per MD lg3 03:49 Drug: NS 0.9% IV 1000 ml Route: IV; Rate: 1 bolus; Site: right antecubital; lg3 03:50 Drug: Ondansetron IVP 4 mg Route: IVP; Site: right antecubital; lg3 06:27 Follow up: Response: No adverse reaction; Marked relief of symptoms lg3 03:50 Drug: Ketorolac IVP 30 mg Route: IVP; Site: right antecubital; lg3 06:26 Follow up: Response: No adverse reaction lg3 Medication: 06:27 VIS not applicable for this client. lg3 Intake: Outcome: 06:18 Discharge ordered by . sp4 06:27 Discharged to home ambulatory. lg3 06:27 Condition: stable 06:27 Discharge instructions given to patient, Instructed on discharge instructions, follow up and referral plans. medication usage, Demonstrated understanding of instructions, follow-up care, medications, Prescriptions given X 4. 06:28 Patient left the ED. lg3 Signatures: Isatu Love RN Deann Sultana RN RN lg3 Amanda Sanchez Vanessa, RN RN vc1 Yuriy Gomez MD MD sp4 Corrections: (The following items were deleted from the chart) 04:37 03:50 morphine IVP or IV 8 mg IVP in right antecubital over 4 mins lg3 lg3 04:38 03:08 morphine IVP or IV 4 mg IVP in right antecubital over 4 mins lg3 lg3
[2022-12-24 06:35] VITALS: TEMP 97.9
[2022-12-24 06:37] VITALS: BP 138/77; O2SAT 94
== END 2022-12-24 06:28 | disposition home or self-care (01) ==
LOC: ER 02:26
DX: R11.2 Nausea with vomiting, unspecified (principal); R52 Pain, unspecified
CPT/HCPCS: 87070; 85025; 81001; 36415; 82550; 81025; 87081; 83690; 80053; 86140; 87804 ×2; 87811; J2405; J7030

== ENCOUNTER → 2023-07-21 | Emergency (ER) | payer BC ==
[~2023-07-21] MED LIST: CIPROFLOXACIN HCL 500 MG TAB ONE; MORPHINE 4 MG/ML SYR ONE; NA CHLORIDE 0.9% 1,000 ML ONE; ONDANSETRON 4 MG/2 ML VIAL ONE; metroNIDAZOLE 500 MG TABLET ONE
[2023-07-21 19:29] LABS: Absolute Lymphocytes (CBC) 0.8 K/uL (0.7-4.9); Lymphocytes % 12.1 % (15.3-44.8); MCV 69.6 fL (80-100); MPV 8.1 fL (7.6-11.3); Platelets 88 thou/uL (152-406); RBC Red Blood Cell Count 5.03 M/uL (3.86-4.86)
[2023-07-21 19:34] LABS: Specific Gravity 1.017 (1.005-1.030); Urine Bacteria None Seen /HPF (<20); Urine Bilirubin NEGATIVE (Negative); Urine Blood Trace (Negative); Urine Clarity Extremely Turbid (Clear); Urine Color Yellow (Yellow); Urine Glucose NEGATIVE (Negative); Urine Mucus Slight /HPF (None Seen); Urine Protein 3+ (Negative); Urine RBC <5 /HPF (None Seen); Urine Urobilinogen Normal (Normal)
[2023-07-21 19:43] LABS: Albumin 4.3 g/dL (3.4-5.0); Bilirubin Total 1.1 mg/dL (0.2-1.0); Potassium 3.7 mEq/L (3.5-5.1); Protein, Total 8.3 g/dL (6.4-8.2)
--- NOTE | 2023-07-21 20:25 | RAD REPORT ---
EXAM DESCRIPTION: CTAbdomen Pelvis W Contrast - 07/21/2023 8:15 pm CLINICAL HISTORY: Abdominal pain. ABD PAIN COMPARISON: Abdomen Pelvis W Contrast dated 11/13/2022; Abdomen Pelvis W Contrast dated 07/01/2018 TECHNIQUE: Biphasic CT imaging of the abdomen and pelvis was performed with 100 ml non-ionic IV cont rast. All CT scans are performed using dose optimization technique as appropriate and may include automated exposure control or mA/KV adjustment according to patient size. FINDINGS: The lung bases are clear.Cholecystectomy clips. The liver, spleen, pancreas, adrenal glands and kidneys are within normal limits. No bowel obstruction, free air, free fluid or abscess. Inflammatory changes are present in the cecum and ascending colon. Appendectomy suspected. No evidence of significant lymphadenopathy. 5 cm probab le uterine fibroid. No suspicious bony findings. IMPRESSION: [id number] inflammatory changes involving the cecum and ascending colon. This may indicate colitis. Colonoscopy would be suggested for followup assessment if not recently performed.
[2023-07-21 20:26] LABS: Blood Morphology Comment NOTED (NOT SEEN); Platelet Estimate DECR; White Blood Cell Scan OK (OK)
--- NOTE | 2023-07-21 20:52 | EDPHYS ---
Physician Documentation [facility] Name: Minoo Sykes Age: 47 yrs Sex: Female : 1975 Arrival Date: 07/21/2023 Time: 18:16 Bed 16 Private MD: ED Physician Alex Nixon HPI: 07/21 20:51 This 47 yrs old Female presents to ER via Ambulatory with complaints of kb Abdominal Pain. 20:51 Patient is a 47-year-old female who presents for abdominal pain that started yesterday. kb Reports nausea and 4 episodes of vomiting today. Denies fever or diarrhea.. Historical: - Allergies: 18:27 No Known Allergies; ap3 - PMHx: 18:27 Anemia; ap3 - PSHx: 18:27 Appendectomy; section; Cholecystectomy; ap3 - Immunization history:: Client reports receiving the 2nd dose of the Covid vaccine. - Social history:: Smoking status: Patient denies any tobacco usage or history of. ROS: 20:50 Constitutional: Negative for fever, chills, and weight loss, kb 20:50 Abdomen/GI: Positive for abdominal pain, nausea and vomiting, 20:50 All other systems are negative, Exam: 20:50 Constitutional: This is a well developed, well nourished patient who is awake, alert, kb and in no acute distress. Head/Face: Normocephalic, atraumatic. ENT: Moist Mucous membranes Cardiovascular: Regular rate Respiratory: Respirations even and unlabored. No increased work of breathing. Talking in full sentences Abdomen/GI: Soft, non-tender. No distention Skin: Warm, dry with normal turgor. Normal color. MS/ Extremity: Pulses equal, no cyanosis. Neurovascular intact. Full, normal range of motion. Neuro: Awake and alert, GCS 15, oriented to person, place, time, and situation. Moves all extremities. Normal gait. Vital Signs: 18:25 BP 151 / 84; Pulse 85; Resp 17; Temp 97.7; Pulse Ox 100% ; Weight 70.31 kg; Height 4 ap3 ft. 11 in. ; Pain 9/10; 19:30 BP 167 / 84; Pulse 77; Resp 18 S; Pulse Ox 96% on R/A; jw7 21:00 BP 164 / 89; Pulse 72; Resp 16 S; Pulse Ox 98% on R/A; jw7 21:42 BP 165 / 86; Pulse 73; Resp 16 S; Pulse Ox 99% on R/A; jw7 18:25 Body Mass Index 31.31 (70.31 kg, 149.86 cm) ap3 18:25 Pain Scale: Adult ap3 MDM: 18:26 Patient medically screened. kb 20:50 Differential diagnosis: diverticulitis, non-specific abd pain, pancreatitis, urinary kb tract infection, Colitis. Data reviewed: vital signs, nurses notes. Historians other than the Patient: Spouse/Significant Other: . 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 07/21 18:28 Order name: CBC with Diff; Complete Time: 20:27 kb 07/21 18:28 Order name: CMP; Complete Time: 19:43 kb 07/21 18:28 Order name: Lipase; Complete Time: 19:43 kb 07/21 18:28 Order name: Urinalysis w/ reflexes; Complete Time: 19:35 kb 07/21 19:39 Order name: CBC Smear Scan; Complete Time: 20:27 EDMS 07/21 18:30 Order name: CT Abd/Pelvis - IV Contrast Only; Complete Time: 20:27 kb 07/21 18:28 Order name: IV Saline Lock; Complete Time: 19:24 kb 07/21 18:28 Order name: Labs collected and sent; Complete Time: 19:24 kb Administered Medications: 20:57 Drug: NS 0.9% IV 1000 ml IV at 1000 ml once Route: IV; Rate: 1000 ml; Site: left jw7 antecubital; 21:30 Follow up: Response: No adverse reaction; IV Status: Completed infusion; IV Intake: jw7 1000ml 20:57 Drug: morphine IVP or IV 4 mg IVP once over 4 mins Route: IVP; Infused Over: 4 mins; jw7 Site: left antecubital; 21:44 Follow up: Response: No adverse reaction; Marked relief of symptoms jw7 20:57 Drug: Ondansetron IVP 4 mg IVP once; over 2 minutes Route: IVP; Site: left antecubital; jw7 21:44 Follow up: Response: No adverse reaction; Marked relief of symptoms jw7 21:11 Drug: Ciprofloxacin PO 500 mg PO once Route: PO; jw7 21:44 Follow up: Response: No adverse reaction jw7 21:11 Drug: metroNIDAZOLE PO 500 mg PO once Route: PO; jw7 21:44 Follow up: Response: No adverse reaction jw7 Disposition: 07/22 09:04 Co-signature as Attending Physician, Alex Nixon MD I reviewed the patient's care rn provided by the Advanced Practice Provider and agree with the diagnosis and treatment plan. Disposition Summary: 07/21/23 20:52 Discharge Ordered Notes: Location: Home kb Condition: Stable kb Diagnosis - Colitis kb Followup: kb - With: Emergency Department - When: As needed - Reason: Worsening of condition Followup: kb - With: Private Physician - When: 2 - 3 days - Reason: Recheck today's complaints, Continuance of care, Re-evaluation by your physician Discharge Instructions: - Discharge Summary Sheet kb - Colitis kb Forms: - Medication Reconciliation Form kb - Thank You Letter kb - Antibiotic Education kb - Prescription Opioid Use kb - Patient Portal Instructions kb - Leadership Thank You Letter kb Prescriptions: - Cipro 500 mg Oral Tablet - take 1 tablet ORAL route every 12 hours for 10 days; 20 tablet; Refills: 0, kb Product Selection Permitted - Flagyl 500 mg Oral Tablet - take 1 tablet ORAL route every 8 hours for 10 days; 30 tablet; Refills: 0, kb Product Selection Permitted Signatures: Dispatcher [employer] Gricelda Martinez, PARMJIT OHP-Alex Schmidt MD MD rn Prokisch, Amanda, RN RN ap3 Avani Ceja RN RN jw7
--- NOTE | 2023-07-21 20:52 | ER ---
Nurse's Notes [facility] Name: Minoo Sykes Age: 47 yrs Sex: Female : 1975 Arrival Date: 07/21/2023 Time: 18:16 Bed 16 Private MD: Diagnosis: Colitis Presentation: 07/21 18:25 Chief complaint: Patient states: she has been having abdominal pain since yesterday. ap3 patient also complains of nausea and vomiting X's 4. patient states the pain is right above her belly button. patient reports her pain is a 9/10. patient states she does not have her gallbladder or appendix. Coronavirus screen: At this time, the client does not indicate any symptoms associated with coronavirus-19. Ebola Screen: No symptoms or risks identified at this time. Initial Sepsis Screen: Does the patient meet any 2 criteria? No. Patient's initial sepsis screen is negative. Does the patient have a suspected source of infection? Yes: Acute abdominal pain. Risk Assessment: Do you want to hurt yourself or someone else? Patient reports no desire to harm self or others. Onset of symptoms was July 20, 2023. 18:25 Method Of Arrival: Ambulatory ap3 18:25 Acuity: BERTA 3 ap3 Triage Assessment: 18:28 General: Appears in no apparent distress. Behavior is calm, cooperative, appropriate ap3 for age. Pain: Complains of pain in abdomen Pain currently is 9 out of 10 on a pain scale. Pain began gradually, 1 day ago. Neuro: Level of Consciousness is awake, alert, obeys commands, Oriented to person, place, time, situation, Appropriate for age. Cardiovascular: Patient's skin is warm and dry. Respiratory: Airway is patent Respiratory effort is even, unlabored, Respiratory pattern is regular, symmetrical. GI: Reports upper abdominal pain, nausea, vomiting. Historical: - Allergies: 18:27 No Known Allergies; ap3 - PMHx: 18:27 Anemia; ap3 - PSHx: 18:27 Appendectomy; section; Cholecystectomy; ap3 - Immunization history:: Client reports receiving the 2nd dose of the Covid vaccine. - Social history:: Smoking status: Patient denies any tobacco usage or history of. Screenin:28 [facility] ED Fall Risk Assessment (Adult) History of falling in the last 3 months, ap3 including since admission No falls in past 3 months (0 pts). Abuse screen: Denies threats or abuse. Nutritional screening: No deficits noted. Tuberculosis screening: No symptoms or risk factors identified. Assessment: 19:00 General: See Triage Assessment. jw7 20:00 Reassessment: Patient appears in no apparent distress at this time. No changes from [facility] previously documented assessment. Patient and/or family updated on plan of care and expected duration. Pain level reassessed. Patient is alert, oriented x 3, equal unlabored respirations, skin warm/dry/pink. 20:59 General: Discharge pending completion of IV Fluids. jw7 21:00 Reassessment: Patient appears in no apparent distress at this time. No changes from [facility] previously documented assessment. Patient and/or family updated on plan of care and expected duration. Pain level reassessed. Patient is alert, oriented x 3, equal unlabored respirations, skin warm/dry/pink. 21:42 Reassessment: Patient appears in no apparent distress at this time. Patient and/or 7 family updated on plan of care and expected duration. Pain level reassessed. Patient is alert, oriented x 3, equal unlabored respirations, skin warm/dry/pink. Patient states symptoms have improved. Vital Signs: 18:25 BP 151 / 84; Pulse 85; Resp 17; Temp 97.7; Pulse Ox 100% ; Weight 70.31 kg; Height 4 ap3 ft. 11 in. ; Pain 9/10; 19:30 BP 167 / 84; Pulse 77; Resp 18 S; Pulse Ox 96% on R/A; jw7 21:00 BP 164 / 89; Pulse 72; Resp 16 S; Pulse Ox 98% on R/A; jw7 21:42 BP 165 / 86; Pulse 73; Resp 16 S; Pulse Ox 99% on R/A; jw7 18:25 Body Mass Index 31.31 (70.31 kg, 149.86 cm) ap3 18:25 Pain Scale: Adult ap3 ED Course: 18:23 Patient arrived in ED. es 18:26 Gricelda Rosenthal [facility]C [facility] kb 18:26 Alex Nixon MD is Attending Physician. kb 18:27 Triage completed. ap3 18:28 Arm band placed on left wrist. ap3 19:05 Waits, Avani, RN is Primary Nurse. jw7 19:24 Patient has correct armband on for positive identification. Bed in low position. Call jw7 light in reach. Side rails up X 1. 19:24 Initial lab(s) drawn, by me, sent to lab. Urine collected: clean catch specimen, jw7 cloudy. Inserted saline lock: 20 gauge in left antecubital area, using aseptic technique. Blood collected. 20:17 CT Abd/Pelvis - IV Contrast Only In Process Unspecified. EDMS 21:42 No provider procedures requiring assistance completed. IV discontinued, intact, jw7 bleeding controlled, No redness/swelling at site. Pressure dressing applied. 21:45 Provided Education on: discharge instructions and medication usage. jw7 Administered Medications: 20:57 Drug: NS 0.9% IV 1000 ml IV at 1000 ml once Route: IV; Rate: 1000 ml; Site: left [facility] antecubital; 21:30 Follow up: Response: No adverse reaction; IV Status: Completed infusion; IV Intake: jw7 1000ml 20:57 Drug: morphine IVP or IV 4 mg IVP once over 4 mins Route: IVP; Infused Over: 4 mins; jw7 Site: left antecubital; 21:44 Follow up: Response: No adverse reaction; Marked relief of symptoms jw7 20:57 Drug: Ondansetron IVP 4 mg IVP once; over 2 minutes Route: IVP; Site: left antecubital; jw7 21:44 Follow up: Response: No adverse reaction; Marked relief of symptoms jw7 21:11 Drug: Ciprofloxacin PO 500 mg PO once Route: PO; jw7 21:44 Follow up: Response: No adverse reaction jw7 21:11 Drug: metroNIDAZOLE PO 500 mg PO once Route: PO; jw7 21:44 Follow up: Response: No adverse reaction jw7 Medication: 21:45 VIS not applicable for this client. jw7 Intake: 21:30 IV: 1000ml; Total: 1000ml. jw7 Outcome: 20:52 Discharge ordered by MD. covarrubias 21:44 Discharged to home ambulatory, jw7 21:44 Condition: stable 21:44 Discharge instructions given to patient, Instructed on discharge instructions, follow up and referral plans. medication usage, Demonstrated understanding of instructions, follow-up care, medications, Prescriptions given X 2, 21:45 Patient left the ED. jw7 Signatures: Dispatcher [employer] EDMS Gricelda Rosenthal EMERGENCY PLANNING AND RESPONSE MANAGER-C EMERGENCY PLANNING AND RESPONSE MANAGER-CkAimee Randhawa Amanda RN RN ap3 Avani Ceja RN RN jw7 Corrections: (The following items were deleted from the chart) 20:59 20:58 General: Discharge pending completion of IV antibiotics. jw7 jw7
[2023-07-22 01:50] VITALS: BP 165/86; TEMP 97.7; O2SAT 99
== END ==
LOC: ER 18:16
DX: K52.9 Noninfective gastroenteritis and colitis, unspecified (principal)
CPT/HCPCS: 85025; 81001; 36415; 83690; 80053; 74177; Q9967; J2405; J7030